=== PATIENT | male | born 1945 | race Caucasian/White ===

== ENCOUNTER → 2016-11-27 | Outpatient (CLI) | payer MEDICARE, OTHER ==
[2016-02-14 14:35] VITALS: BP 103/76
[~2016-11-27] MED LIST: AMIT25TA PO; ASPI81TA44 PO; ATORVASTATIN CA80 MG PO; CLOP75TA PO; CRESTOR20 MG PO; DOXY100T PO; FAMO-63 PO; FISH1CAP PO; GABA300S PO; LOSA1TAB16 PO; METO1TAB7 PO; NIAC500T PO; OMEG500C PO; PANT40TA5 PO; PROAIR HFA8.5 GM INH; REGADENOSON 0.4 MG/5 ML DISP.SYRIN. IV ONE; [UNRECOGNIZED DRUG - CODE] PO
--- NOTE | 2016-11-27 15:27 | RAD ---
APPROVED REPORT Test Type: Pharmacological Stress Nurse/Tech: Shannon Garnica R.N. Test Indications: pre op Cardiac History: [place] 2011, 3 stents, asthma, htn Medications: see ehr Medical History: see ehr Resting ECG: sr 1st degree HB Resting Heart Rate: 59 bpm Resting Blood Pressure: 149/85mmHg Pretest Chest Pain: No chest pain Nurse/Tech Notes lungs cta, heart tones regular, good radial pulse Consent: The procedure was explained to the patient in lay terms. Informed consent was witnessed. Maciej eout was entered into [employer]. History and Stress Test performed by Shannon Garnica R.N. Pharm. Details Pharmacologic stress testing was performed using 0.4mg per 5ml of regadenoson given intravenously ove r 7-10 seconds. Stress Symptoms No chest pain or symptoms. POST EXERCISE Reason for Termination: Infusion complete Target HR: No Max HR: 93 bpm Max Blood Pressure: 142/80mmHg Chest Pain: No. Arrhythmia: Yes. occ PVC noted ST Change: No. INTERPRETATION Stress EKG Conclusion: Baseline EKG showed sinus rhythm. No ischemic changes at peak stress. No arr hythmias. Imaging Protocol IMAGE PROTOCOL: Rest Tc-99m/stress Tc-99m 1 day Rest: Stress: Viability: Radiopharm.Tc99m AjofdueeoLa27o Sestamibi Dose11.2mCi 33.3mCi Duration 15min. 12min. Img Date 11/27/2016 11/27/2016 Inj-Img Ubca89wka. 60min. Rest Admin Site:IV - Left AntecubitalAdministrator:Matt Hadley RT (R)(N) Stress Admin Site: IV - Left AntecubitalAdministrator: Sulma Salazar RT (R)(N) STRESS DATA End Diast. Vol.109.0mlAv. Heart Rate70.0bpm End Syst. Vol.42.0mlCO Index BSA0.0L/min Myocardial Cahj279.0gEject. Bsxfkhmc90.0% Stress Rates Pk. Fill Rate2.49EDV/secLVtime Pk. Fill 111.21msec Pk. Empty Rate3.56ESV/secLVtime Pk. Qjddl414.95msec 1/3 Pk. Fill1.60EDV/sec Stress Scores Regional WT0.00Summed WT2.00 Regional WM0.00Summed WM5.00 Study quality was good. Left Ventricular size was Normal at Rest and Stress. Lung uptake was Normal. Left Ventricular ejection fraction is 61%. LV Perfusion Scintigraphic images showed small fixed defect involving the base to mid inferior wall consistent wit h previous myocardial infarction without any significant reversibility. Wall Motion Basal inferior wall hypokinesis LV Perf. Quant 17 Seg. SSS3.00 17 Seg. SRS6.00 17 Seg. SDS0.00 Stress Defect Extent (% LAD)0.00Rest Defect Extent (% LAD)0.00Rev. Defect Extent (% LAD)0.00 Stress Defect Extent (% LCX) 0.00Rest Defect Extent (% LCX)0.00Rev. Defect Extent (% LCX)0.00 Stress Defect Extent (% RCA)17.80Rest Defect Extent (% RCA)28.90Rev. Defect Extent (% RCA)0.00 Stress Defect Extent (% WADE)4.80Rest Defect Extent (% WADE)7.60Rev. Defect Extent (% WADE)0.00 Conclusion 1. Regadenoson cardioisotope stress test showed small base to mid inferior wall infarction without an y ischemia. 2. Basal inferior wall hypokinesis with ejection fraction calculated at 61%. 3. Low risk for cardiac events.
== END | disposition home or self-care (01) ==
LOC: NM 09:26
PROVIDERS: ATTEND Internal Medicine Cardiovascular Disease
DX: Z01.818 Encounter for other preprocedural examination (principal)
CPT/HCPCS: 78452; 93017; 96374; 96375; 96376; A9500; J2785

== ENCOUNTER → 2017-11-22 | Outpatient (CLI) | payer MEDICARE, OTHER | END | disposition home or self-care (01) | LOC: ECHO 09:34 | DX: I25.10 Atherosclerotic heart disease of native coronary artery without angina pectoris (principal); I10 Essential (primary) hypertension; E78.5 Hyperlipidemia, unspecified; E78.00 Pure hypercholesterolemia, unspecified; J44.1 Chronic obstructive pulmonary disease with (acute) exacerbation; K21.9 Gastro-esophageal reflux disease without esophagitis | CPT/HCPCS: 93306 ==

== ENCOUNTER → 2018-12-09 | Outpatient (CLI) | payer MEDICARE, OTHER ==
[2016-02-14 14:35] VITALS: BP 103/76
[~2018-12-09] MED LIST changes: +ALBU2.5V8 INH; -ASPI81TA44 PO; +ASPI81TA59 PO; -LOSA1TAB16 PO; +LOSA1TAB19 PO; -PANT40TA5 PO; +PANT40TA77 PO; -PROAIR HFA8.5 GM INH
--- NOTE | 2018-12-09 11:16 | CARD ---
MR#: [id number] Date of Study: 12/09/2018 Ordering Physician: FLAKITO MÁRQUEZ, Referring Physician: FLAKITO MÁRQUEZ, Tech: Wendi Kennedy APPROVED REPORT EXAM: Two-dimensional and M-mode echocardiogram with Doppler and color Doppler. Other Information Quality : GoodHR: 58bpm INDICATION CAD RISK FACTORS Hypertension Hyperlipidemia Two Myocardial Infarctions 2D DIMENSIONS RVDd3.8 (2.9-3.5cm)Left Atrium(2D)3.5 (1.6-4.0cm) IVSd1.2 (0.7-1.1cm)Aortic Root(2D)3.3 (2.0-3.7cm) LVDd4.9 (3.9-5.9cm)LVOT Diameter2.1 (1.8-2.4cm) PWd1.0 (0.7-1.1cm)LVDs3.3 (2.5-4.0cm) FS (%) 31.5 %SV65.3 ml LVEF(%)59.2 (>50%) Aortic Valve AoV Peak Moi.126.8cm/sAoV VTI23.4cm AO Peak GR.6.4mmHgLVOT Peak Moi.77.8cm/s LVOT VTI 18.35cmAO Mean GR.3mmHg ANDREW (VMAX)1.99xv5CGV (VTI)2.82cm2 Mitral Valve MV E Qynjqnuc33.1cm/sMV E Peak Gr.122mmHg MV DECEL XHEY483saTP A Rgjxnyiw26.2cm/s MV KLV45cuQ/A Ratio0.7 MVA (PHT)2.76cm2 TDI E/Lateral E'4.6E/Medial E'8.7 Pulmonary Valve PV Peak Igxfvvob169.8cm/sPV Peak Grad.6mmHg Tricuspid Valve TR P. Yzexsbti417fk/sRAP UFAFBZAW3fgMj TR Peak Gr.93ccCvQWRY20fuBq Pulmonary Vein S1 Rzbnzdak47.1cm/sD2 Rxggzdbf38.0cm/s PVa qeiypnmd692eijo LEFT VENTRICLE The left ventricle is normal size. There is borderline to mild concentric left ventricular hypertroph y. The left ventricular systolic function is normal. The Ejection Fraction is 50-55%. There is normal LV segmental wall motion. Transmitral Doppler flow pattern is Grade I-abnormal relaxation pattern. RIGHT VENTRICLE The right ventricle is normal size. There is normal right ventricular wall thickness. The right ventr icular systolic function is normal. ATRIA The left atrium size is normal. The right atrium size is normal. The interatrial septum is intact wit h no evidence for an atrial septal defect or patent foramen ovale as noted on 2-D or Doppler imaging. AORTIC VALVE The aortic valve is normal in structure and function. Doppler and Color Flow revealed trace aortic re gurgitation. There is no significant aortic valvular stenosis. MITRAL VALVE The mitral valve is normal in structure and function. There is no evidence of mitral valve prolapse. There is no mitral valve stenosis. Doppler and Color-flow revealed trace mitral regurgitation. TRICUSPID VALVE The tricuspid valve is normal in structure and function. Doppler and Color Flow revealed trace tricus pid regurgitation with an estimated PAP of 23 mmHg. There is no tricuspid valve prolapse or vegetatio n. There is no tricuspid valve stenosis. PULMONIC VALVE The pulmonic valve is not well visualized. Doppler and Color Flow revealed trace pulmonic valvular re gurgitation. GREAT VESSELS The aortic root is normal in size. The IVC is normal in size and collapses >50% with inspiration. PERICARDIAL EFFUSION There is no evidence of significant pericardial effusion. Critical Notification Critical Value: No <Conclusion> The left ventricular systolic function is normal. The Ejection Fraction is 50-55%. There is normal LV segmental wall motion. Transmitral Doppler flow pattern is Grade I-abnormal relaxation pattern. Trace aortic regurgitation. Trace mitral regurgitation. Trace tricuspid regurgitation with an estimated PAP of 23 mmHg. There is no evidence of significant pericardial effusion. Signed by : Flakito Márquez, Electronically Approved : 12/09/2018 11:15:57
--- NOTE | 2018-12-09 13:18 | RAD ---
MR#: [id number] Date of Study: 12/09/2018 Ordering Physician: FLAKITO FELIZ, Referring Physician: ELDON FRY Tech: JHONY Saldana ARRT (R) (N) APPROVED REPORT Test Type: Pharmacological Stress Nurse/Tech: Avila Pérez RN Test Indications: CAD Cardiac History: MD, PTCA Medications: See Electronic Medical Record Medical History: See Electronic Medical Record Resting ECG: SR Resting Heart Rate: 58 bpm Resting Blood Pressure: 121/76mmHg Pretest Chest Pain: None Nurse/Tech Notes Lungs CTA, S1S2 Consent: The procedure was explained to the patient in lay terms. Informed consent was witnessed. Maciej eout was entered into [email or web address]. History and Stress Test performed by Avila Pérez RN Pharm. Details Pharmacologic stress testing was performed using 0.4mg per 5ml of regadenoson given intravenously ove r 7-10 seconds. Stress Symptoms No chest pain or symptoms. POST EXERCISE Reason for Termination: Infusion complete Max HR: 84 bpm Max Blood Pressure: 121/76mmHg Blood Pressure response to exercise: Normal blood pressure response during stress. Heart Rate response to exercise: normal response Chest Pain: No. Arrhythmia: No. ST Change: No. INTERPRETATION Stress EKG Conclusion: Baseline EKG showed sinus rhythm with old inferior infarct. No diagnostic evid ence of ischemia at peak stress. No arrhythmias. Imaging Protocol IMAGE PROTOCOL: Rest Tc-99m/stress Tc-99m 1 day Rest: Stress: Viability: Radiopharm.Tc99m PqnsensunOg37b Sestamibi Qitb72dAn 31.3mCi Img Date 12/09/2018 12/09/2018 Inj-Img Wgyb07tke. 60min. Rest Admin Site:IV - Left AntecubitalAdministrator:JHONY Saldana ARRT (R)(N) Stress Admin Site: IV - Left AntecubitalAdministrator: [facility] STRESS DATA End Diast. Vol.109.0mlLVEDV index BSA61.0ml End Syst. Vol.29.0mlLVESV index BSA16.0ml Myocardial Qacl184.0gEject. Jhcbuhsy03.0% Stress Scores Regional WT0.00Summed WT10.00 Regional WM0.00Summed WM0.00 LV Perfusion Scintigraphic images showed small to moderate fixed defect involving the base to mid inferior wall ex tending into the inferolateral wall consistent with previous myocardial infarction without any revers ibility. Wall Motion Basal inferior wall hypokinesis with ejection fraction calculated at 74%. LV Perf. Quant 17 Seg. SSS5.00 17 Seg. SRS6.00 17 Seg. SDS0.00 Stress Defect Extent (% LAD)0.00Rest Defect Extent (% LAD)0.00Rev. Defect Extent (% LAD)0.00 Stress Defect Extent (% LCX) 2.50Rest Defect Extent (% LCX)1.30Rev. Defect Extent (% LCX)0.00 Stress Defect Extent (% RCA)37.80Rest Defect Extent (% RCA)44.40Rev. Defect Extent (% RCA)0.00 Stress Defect Extent (% WADE)11.10Rest Defect Extent (% WADE)11.10Rev. Defect Extent (% WADE)0.00 Conclusion 1. Regadenoson cardioisotope stress test showed thnbz-dq-pdaxouiv infarct involving the base to mid i nferior wall without any ischemia. 2. Basal inferior wall hypokinesis with ejection fraction calculated at 74%. 3. Low risk for cardiac events. Signed by : Flakito Feliz, Electronically Approved : 12/09/2018 13:17:57
== END | disposition home or self-care (01) ==
LOC: ECHO 07:49
PROVIDERS: ATTEND Internal Medicine Cardiovascular Disease
DX: I51.7 Cardiomegaly (principal); I21.19 ST elevation (STEMI) myocardial infarction involving other coronary artery of inferior wall; I25.10 Atherosclerotic heart disease of native coronary artery without angina pectoris; I25.2 Old myocardial infarction; Z98.61 Coronary angioplasty status
CPT/HCPCS: 78452; 93017; 93306; A9500; J2785

== ENCOUNTER → 2019-11-12 | Outpatient (CLI) | payer MEDICARE, OTHER ==
[2016-02-14 14:35] VITALS: BP 103/76
[~2019-11-12] MED LIST changes: -REGADENOSON 0.4 MG/5 ML DISP.SYRIN. IV ONE
--- NOTE | 2019-11-12 11:57 | CARD ---
MR#: [id number] Date of Study: 11/12/2019 Ordering Physician: FLAKITO FELIZ, Referring Physician: FLAKITO FELIZ, Tech: Wendi Kennedy APPROVED REPORT EXAM: Two-dimensional and M-mode echocardiogram with Doppler and color Doppler. Other Information Quality : AverageHR: 60bpm Technically limited study due to COPD INDICATION Cardiac Disease: CAD RISK FACTORS Hypertension Hyperlipidemia 2D DIMENSIONS Left Atrium(2D)3.3 (1.6-4.0cm)IVSd1.2 (0.7-1.1cm) Aortic Root(2D)3.2 (2.0-3.7cm)LVDd4.9 (3.9-5.9cm) LVOT Diameter2.1 (1.8-2.4cm)PWd0.9 (0.7-1.1cm) LVDs3.5 (2.5-4.0cm)FS (%) 30.2 % SV66.1 mlLVEF(%)57.3 (>50%) Aortic Valve AoV Peak Moi.126.0cm/sAoV VTI26.3cm AO Peak GR.6.3mmHgLVOT Peak Moi.82.8cm/s LVOT VTI 17.45cmAO Mean GR.3mmHg ANDREW (VMAX)1.07ah9OPT (VTI)2.26cm2 Mitral Valve MV E Fyarmihl41.1cm/sMV DECEL ZNBT456dq MV A Frpsugpb19.7cm/sMV E Mean Gr.1mmHg MV PFE37bpR/A Ratio0.7 MVA (PHT)3.36cm2 TDI E/Lateral E'4.3E/Medial E'9.2 Pulmonary Valve PV Peak Ndgpjzru62.2cm/sPV Peak Grad.2mmHg Tricuspid Valve TR P. Uysoxsok966om/sRAP RQABQWXJ5hsYx TR Peak Gr.54siJmJDMU44qnCt Pulmonary Vein S1 Nwhonkoz85.2cm/sD2 Eqriepbd23.2cm/s PVa iqcgjuec313cdyr LEFT VENTRICLE The left ventricle is normal size. There is normal left ventricular wall thickness. The left ventricu lar systolic function is normal and the ejection fraction is within normal range. The Ejection Fracti on is 50-55%. There is normal LV segmental wall motion. Transmitral Doppler flow pattern is Grade I-a bnormal relaxation pattern. RIGHT VENTRICLE The right ventricle is normal size. There is normal right ventricular wall thickness. The right ventr icular systolic function is normal. ATRIA The left atrium size is normal. The right atrium size is normal. The interatrial septum is intact wit h no evidence for an atrial septal defect or patent foramen ovale as noted on 2-D or Doppler imaging. AORTIC VALVE The aortic valve is thickened but opens well. Doppler and Color Flow revealed trace aortic regurgitat ion. There is no significant aortic valvular stenosis. Calculated aortic valve area is 2.03 cm2 with maximum pressure gradient of 8 mmHg and mean pressure gradient of 4 mmHg. MITRAL VALVE The mitral valve is normal in structure and function. There is no evidence of mitral valve prolapse. There is no mitral valve stenosis. Doppler and Color Flow revealed no mitral valve regurgitation note d. TRICUSPID VALVE The tricuspid valve is normal in structure and function. Doppler and Color Flow revealed trace tricus pid regurgitation with an estimated PAP of 19 mmHg. There is no tricuspid valve stenosis. PULMONIC VALVE The pulmonic valve is not well visualized. Doppler and Color Flow revealed no pulmonic valvular regur gitation. There is no pulmonic valvular stenosis. GREAT VESSELS The aortic root is normal in size. The IVC is normal in size and collapses >50% with inspiration. PERICARDIAL EFFUSION There is no evidence of significant pericardial effusion. Critical Notification Critical Value: No <Conclusion> The left ventricular systolic function is normal and the ejection fraction is within normal range. Th e Ejection Fraction is 50-55%. There is normal LV segmental wall motion. Signed by : Shukri Miles, Electronically Approved : 11/12/2019 11:57:11
== END | disposition home or self-care (01) ==
LOC: ECHO 07:54
PROVIDERS: ATTEND Internal Medicine Cardiovascular Disease
DX: I25.10 Atherosclerotic heart disease of native coronary artery without angina pectoris (principal)
CPT/HCPCS: 93306

== ENCOUNTER → 2019-12-01 | Outpatient (CLI) | payer MEDICARE, OTHER ==
[2016-02-14 14:35] VITALS: BP 103/76
--- NOTE | 2019-12-01 17:21 | RAD ---
MR#: [id number] Date of Study: 12/01/2019 Ordering Physician: FLAKITO FELIZ, Referring Physician: FLAKITO FELIZ, Tech: Pj Roberts RDMS, RVT APPROVED REPORT Patient Location: OUT-PATIENT Indications Rest Pain:Bilaterally more so on lft than rt VELOCITY AND DOPPLER WAVEFORM ANALYSIS RIGHT cm/secWaveformSeverity LEFT cm/secWaveform Severity pCFA 112.0TriphasicpCFA 126.0Triphasic dCFA dCFA Prof Fem Art. 84.0TriphasicProf Fem Art. 44.0Triphasic Fem Art Prox. 92.0TriphasicFem Art Prox. 109.0Triphasic Fem Art Mid. 78.0TriphasicFem Art Mid. 69.0Triphasic Fem Art Dist. 79.0TriphasicFem Art Dist. 72.0Triphasic Pop Art(Fossa) 65.0TriphasicPop Art(AK) 71.0Triphasic AUTOMATIC PAD MAKING MACHINE OPERATOR Prox. 57.0TriphasicPTA Prox. 46.0Triphasic AUTOMATIC PAD MAKING MACHINE OPERATOR Dist. 55.0TriphasicPTA Dist. 50.0Triphasic Per Art Prox. 31.0TriphasicPer Art Prox. 39.0Triphasic Per Art Dist.33.0TriphasicPer Art Dist.39.0Biphasic JUST[place] Prox. 43.0TriphasicATA Prox. 40.0Triphasic Findings Grayscale images of the bilateral lower extremity arterial vessels reveals mild to moderate diffuse a therosclerosis. On the right side there are triphasic waveforms with three-vessel runoff. Similarly on the left side there are triphasic waveforms with three-vessel runoff. No significant focal stenosis is identified . Critical Notification Critical Value: No <Conclusion> 1. No significant lower extremity arterial disease bilaterally. 2. There is three-vessel runoff below the knee bilaterally, monophasic waveforms in the left peronea l artery suggestive of diffuse calcification but no focal high-grade stenosis noted Signed by : Shukri Miles, Electronically Approved : 12/01/2019 17:20:57
== END | disposition home or self-care (01) ==
LOC: US 15:08
PROVIDERS: ATTEND Internal Medicine Cardiovascular Disease
DX: I70.203 Unspecified atherosclerosis of native arteries of extremities, bilateral legs (principal); M79.605 Pain in left leg; M79.604 Pain in right leg
CPT/HCPCS: 93925

== ENCOUNTER → 2020-11-23 | Outpatient (CLI) | payer MEDICARE, OTHER ==
[2016-02-14 14:35] VITALS: BP 103/76
[~2020-11-23] MED LIST changes: +REGADENOSON 0.4 MG/5 ML DISP.SYRIN. IV ONE
--- NOTE | 2020-11-23 17:18 | CARD ---
MR#: [id number] Date of Study: 11/23/2020 Ordering Physician: FLAKITO FELIZ, Referring Physician: FLAKITO FELIZ Tech: Zoë Enrique [facility] APPROVED REPORT EXAM: Two-dimensional and M-mode echocardiogram with Doppler and color Doppler. Other Information Quality : AverageHR: 57bpm Rhythm : NSR INDICATION Cardiac Disease: RISK FACTORS Hypertension Hyperlipidemia 2D DIMENSIONS RVDd3.1 (2.9-3.5cm)Left Atrium(2D)3.3 (1.6-4.0cm) IVSd1.1 (0.7-1.1cm)Aortic Root(2D)3.2 (2.0-3.7cm) LVDd4.9 (3.9-5.9cm)LVOT Diameter2.3 (1.8-2.4cm) PWd1.2 (0.7-1.1cm)LVDs4.1 (2.5-4.0cm) FS (%) 16.7 %SV39.5 ml Aortic Valve AoV Peak Moi.135.9cm/sAoV VTI33.2cm AO Peak GR.7.4mmHgLVOT Peak Moi.85.1cm/s AO Mean GR.3mmHgAVA (VMAX)2.63cm2 Mitral Valve MV E Mhdwcfsy93.5cm/sMV DECEL XYHY738le MV A Nzqlggxm92.6cm/sE/A Ratio0.9 Tricuspid Valve TR P. Hboasmpl940yp/sTR Peak Gr.17mmHg Pulmonary Vein S1 Bcucxzel11.3cm/sD2 Txognwag57.1cm/s PVa hvtpbevl706xsuf LEFT VENTRICLE The left ventricle is normal size. There is mild concentric left ventricular hypertrophy. The left ve ntricular systolic function is low normal. Estimated ejection fraction is 50%. There is normal LV se gmental wall motion. The left ventricular diastolic function and filling is normal for age. RIGHT VENTRICLE The right ventricle is normal size. There is normal right ventricular wall thickness. The right ventr icular systolic function is normal. ATRIA The left atrium size is normal. The right atrium size is normal. The interatrial septum is intact wit h no evidence for an atrial septal defect or patent foramen ovale as noted on 2-D or Doppler imaging. AORTIC VALVE The aortic valve is normal in structure and function. Doppler and Color Flow revealed mild aortic reg urgitation. There is no significant aortic valvular stenosis. MITRAL VALVE The mitral valve is normal in structure and function. There is no evidence of mitral valve prolapse. There is no mitral valve stenosis. Doppler and Color-flow revealed mild mitral regurgitation. TRICUSPID VALVE The tricuspid valve is normal in structure and function. Doppler and Color Flow revealed mild tricusp id regurgitation. Estimated PAP 20 mmHg. There is no tricuspid valve stenosis. GREAT VESSELS The aortic root is normal in size. PERICARDIAL EFFUSION There is no evidence of significant pericardial effusion. Critical Notification Critical Value: No <Conclusion> The left ventricle is normal size. The left ventricular systolic function is low normal. Estimated ejection fraction is 50%. There is mild concentric left ventricular hypertrophy. Doppler and Color Flow revealed mild aortic regurgitation. There is no significant aortic valvular stenosis. Doppler and Color-flow revealed mild mitral regurgitation. Doppler and Color Flow revealed mild tricuspid regurgitation. Estimated PAP 20 mmHg. Signed by : Heladio Romo MD Electronically Approved : 11/23/2020 17:18:09
--- NOTE | 2020-11-23 17:57 | RAD ---
MR#: [id number] Date of Study: 11/23/2020 Ordering Physician: FLAKITO FELIZ, Referring Physician: ELDON FRY Tech: JHONY Saldana, ARRT (R) (N)[facility] APPROVED REPORT Test Type: Pharmacological Stress Nurse/Tech: Paula Samayoa R.N. Test Indications: CAD Cardiac History: [place]-stents 2010,htn Medications: See Electronic Medical Record Medical History: See Electronic Medical Record Resting Heart Rate: 69 bpm Resting Blood Pressure: 123/67mmHg Pretest Chest Pain: No chest pain Nurse/Tech Notes S1S2. lungs CTA Consent: The procedure was explained to the patient in lay terms. Informed consent was witnessed. Maciej eout was entered into [employer]. History and Stress Test performed by MA[facility] Pharm. Details Pharmacologic stress testing was performed using 0.4mg per 5ml of regadenoson given intravenously ove r 7-10 seconds. Stress Symptoms SOA POST EXERCISE Reason for Termination: Infusion complete Max HR: 105 bpm Max Blood Pressure: 113/52mmHg Blood Pressure response to exercise: Normal blood pressure response during stress. Heart Rate response to exercise: wnl Chest Pain: No. Arrhythmia: No. INTERPRETATION Stress EKG Conclusion: The resting EKG shows a sinus rhythm with mild nonspecific T wave changes. The stress EKG shows no significant changes from baseline. No EKG evidence of stress-induced ischemia. Imaging Protocol IMAGE PROTOCOL: Rest Tc-99m/stress Tc-99m 1 day Rest: Stress: Viability: Radiopharm.Tc99m QqolwpyskPf85h Sestamibi Udwb37tWt 31mCi Duration 15min. 10min. Img Date 11/23/2020 11/23/2020 Inj-Img Gekn58iga. 60min. Rest Admin Site:IV - Left AntecubitalAdministrator:[facility] Stress Admin Site: IV - Left AntecubitalAdministrator: JHONY Saldana, ARRT (R)(N) STRESS DATA End Diast. Vol.95.0mlAv. Heart Rate68.0bpm End Syst. Vol.30.0mlCO Index BSA0.0L/min Myocardial Qfvg342.0gEject. Pizdnjvu26.0% Stress Rates Pk. Fill Rate2.18EDV/secLVtime Pk. Fill 122.21msec Pk. Empty Rate3.78ESV/secLVtime Pk. Aukrs707.09msec 1/3 Pk. Fill1.48EDV/sec Stress Scores Regional WT1.00Summed WT8.00 Regional WM0.00Summed WM2.00 LV Perfusion The stress scans show an inferior wall defect. The rest scans show a slightly larger inferior wall defect. Nuclear imaging shows a fixed inferior wall defect most consistent with a prior infarct. There is no reversible ischemia. Wall Motion Left ventricular ejection fraction is 65% with slight inferior hypokinesis. LV Perf. Quant 17 Seg. SSS9.00 17 Seg. SRS16.00 17 Seg. SDS1.00 Stress Defect Extent (% LAD)0.00Rest Defect Extent (% LAD)7.50Rev. Defect Extent (% LAD)0.00 Stress Defect Extent (% LCX) 20.00Rest Defect Extent (% LCX)26.30Rev. Defect Extent (% LCX)0.00 Stress Defect Extent (% RCA)28.90Rest Defect Extent (% RCA)91.10Rev. Defect Extent (% RCA)0.00 Stress Defect Extent (% WADE)13.70Rest Defect Extent (% WADE)33.30Rev. Defect Extent (% WADE)0.00 Conclusion 1. No EKG evidence of stress-induced ischemia. 2. Fixed inferior wall defect most consistent with a prior infarct. 3. No reversible ischemia. 4. LV ejection fraction of 65% with slight inferior wall hypokinesis. 5. Moderately low risk Lexiscan nuclear stress test. Signed by : Heladio Romo MD Electronically Approved : 11/23/2020 17:57:03
== END ==
LOC: ECHO 08:49
PROVIDERS: ATTEND Internal Medicine Cardiovascular Disease
DX: I08.3 Combined rheumatic disorders of mitral, aortic and tricuspid valves (principal); I25.10 Atherosclerotic heart disease of native coronary artery without angina pectoris
CPT/HCPCS: 78452; 93017; 93306; A9500; J2785

== ENCOUNTER 2021-08-13 12:49 | Inpatient (IN) | payer MEDICARE ==
[~2021-08-13] VITALS: Ht 162.6 cm; Wt 73.1 kg
[~2021-08-13 12:49] MED LIST changes: -REGADENOSON 0.4 MG/5 ML DISP.SYRIN. IV ONE
[2021-08-13] MEDS ORDERED: IV RINGERS,LACTATED 1000ML 1,000 ML IV SCH (13:15)
[2021-08-13] MEDS ORDERED: fentaNYL PF VIAL 100 MCG/2 ML VIAL IV PRN (13:15)
[2021-08-13 13:19] LABS: BASO % 1 % (0-3); EOS # 0.1 x10^3/uL (0.0-0.7); EOS % 2 % (0-3); HEMATOCRIT 42.4 % (39.0-53.0); HEMOGLOBIN 14.6 g/dL (13.0-17.5); LYMPH # 1.3 x10^3/uL (1.0-4.8); LYMPH % 25 % (24-48); MEAN CORPUSCULAR HEMOGLOBIN 32 pg (25-35); MEAN CORPUSCULAR HGB CONC 35 g/dL (31-37); MEAN CORPUSCULAR VOLUME 92 fL (79-100); MONO # 0.4 x10^3/uL (0.0-1.1); MONO % 8 % (0-9); NEUT # 3.3 x10^3/uL (1.8-7.7); NEUT % 64 % (31-73); PLATELET COUNT 224 x10^3/uL (140-400); RED BLOOD COUNT 4.59 x10^6/uL (4.30-5.70); RED CELL DISTRIBUTION WIDTH 13.3 % (11.5-14.5); WHITE BLOOD COUNT 5.2 x10^3/uL (4.0-11.0)
--- NOTE | 2021-08-13 13:27 | ED.ADGEN ---
Past Medical History Past Medical History: CAD, GERD, High Cholesterol, Hypertension, [place] Additional Past Medical Histor: chronic back pain, neuropathy Past Surgical History: Other Additional Past Surgical Histo: cardiac stents x 4, rotator cuff, lower back Smoking Status: Never Smoker Alcohol Use: None Drug Use: None General Adult EDM: Chief Complaint: CHEST PAIN HPI: HPI: Patient is a 76 year old male coming in via EMS from home for chest pain and back pain. 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 Patient denies any heavy lifting or trauma patient event. The pain is not worse with palpation or movement. Says he was cutting down a tree when he started having pounding chest pain at 1130. Patient states he went to lay down and the chest pain eased up some, was given 324 mg of aspirin by EMS. Patient states the pain in his chest is since resolved but he still having the back pain. Patient has a history of previous MIs in 1999 and 2010 each with 1 stent being placed in RCA. Had angiogram of her chest 2004 and had another stent placement in the RCA. Patient has a former history of tobacco use, hypertension, and dyslipidemia. Denies diabetes. Review of Systems: Review of Systems: All other systems within normal limits except for as noted in the HPI Current Medications: Current Medications Medications (Trade) Dose Ordered Sig/Magda Start Time Stop Time Status Last Admin Dose Admin Acetaminophen (Tylenol) 650 mg PRN Q4HRS PRN 08/13/21 15:00 08/14/21 14:59 Fentanyl Citrate (Fentanyl 2ml Vial) 50 mcg PRN Q1HR PRN 08/13/21 15:00 08/14/21 14:59 Nitroglycerin (Nitrostat) 0.4 mg PRN Q5MIN PRN 08/13/21 15:00 08/14/21 14:59 Ondansetron HCl (Zofran) 4 mg PRN Q8HRS PRN 08/13/21 15:00 08/14/21 14:59 Ringer's Solution 1,000 ml @ 1,000 mls/hr Q1H 08/13/21 13:15 08/13/21 14:14 DC 08/13/21 13:27 1,000 MLS/HR Allergies: Allergies: Allergies Coded Allergies Type Severity Reaction Last Updated Verified morphine Adverse Reaction Severe vOMITING 08/13/21 Yes Physical Exam: PE: Constitutional: Well developed, well nourished, no acute distress, non-toxic appearance. [] HENT: Normocephalic, atraumatic, bilateral external ears normal, nose normal. [] Eyes: PERRLA, conjunctiva normal, no discharge. [] Neck: No rigidity, supple, no stridor. [] Cardiovascular: Regular rate and rhythm, brisk cap refill [] Lungs & Thorax: Non labored symmetric respirations, no tachypnea or respiratory distress [] Abdomen: Soft, nondistended, no abdominal tenderness palpation. Skin: Warm, dry, no erythema, no rash. [] Back: Unremarkable, no spinal deformity, no point tenderness palpation Extremities: No deformities, range of motion grossly intact, no lower extremity edema [] Neurologic: Alert and oriented X 3, no focal deficits noted. [] Psychologic: Affect normal, judgement normal, mood normal. [] Current Patient Data: Labs: Laboratory Tests Test 08/13/21 13:04 08/13/21 13:37 White Blood Count 5.2 x10^3/uL (4.0-11.0) Red Blood Count 4.59 x10^6/uL (4.30-5.70) Hemoglobin 14.6 g/dL (13.0-17.5) Hematocrit 42.4 % (39.0-53.0) Mean Corpuscular Volume 92 fL (79-100) Mean Corpuscular Hemoglobin 32 pg (25-35) Mean Corpuscular Hemoglobin Concent 35 g/dL (31-37) Red Cell Distribution Width 13.3 % (11.5-14.5) Platelet Count 224 x10^3/uL (140-400) Neutrophils (%) (Auto) 64 % (31-73) Lymphocytes (%) (Auto) 25 % (24-48) Monocytes (%) (Auto) 8 % (0-9) Eosinophils (%) (Auto) 2 % (0-3) Basophils (%) (Auto) 1 % (0-3) Neutrophils # (Auto) 3.3 x10^3/uL (1.8-7.7) Lymphocytes # (Auto) 1.3 x10^3/uL (1.0-4.8) Monocytes # (Auto) 0.4 x10^3/uL (0.0-1.1) Eosinophils # (Auto) 0.1 x10^3/uL (0.0-0.7) Basophils # (Auto) 0.0 x10^3/uL (0.0-0.2) Prothrombin Time 13.7 SEC (11.7-14.0) Prothrombin Time INR 1.1 (0.8-1.1) D-Dimer (Megan) 0.27 ug/mlFEU (0.00-0.50) Sodium Level 139 mmol/L (136-145) Potassium Level 3.9 mmol/L (3.5-5.1) Chloride Level 105 mmol/L (98-107) Carbon Dioxide Level 23 mmol/L (21-32) Anion Gap 11 (6-14) Blood Urea Nitrogen 23 mg/dL (8-26) Creatinine 1.2 mg/dL (0.7-1.3) Estimated GFR (Cockcroft-Gault) 58.9 BUN/Creatinine Ratio 19 (6-20) Glucose Level 110 mg/dL (70-99) H Calcium Level 9.2 mg/dL (8.5-10.1) Magnesium Level 2.1 mg/dL (1.8-2.4) Total Bilirubin 0.5 mg/dL (0.2-1.0) Aspartate Amino Transferase (AST) 44 U/L (15-37) H Alanine Aminotransferase (ALT) 59 U/L (16-63) Alkaline Phosphatase 64 U/L (46-116) Troponin I High Sensitivity 34 ng/L (4-75) JM-Wre-J-Type Natriuretic Peptide 191 pg/mL (0-449) Total Protein 6.9 g/dL (6.4-8.2) Albumin 4.1 g/dL (3.4-5.0) Albumin/Globulin Ratio 1.5 (1.0-1.7) Lipase 98 U/L (73-393) Urine Collection Type Unknown Urine Color (Auto) Light yellow Urine Turbidity Clear Urine pH (Auto) 6.5 (<5.0-8.0) Urine Specific [place] 1.011 (1.000-1.030) Urine Protein (Auto) Negative mg/dL (Negative) Urine Glucose (Auto)(UA) Negative mg/dL (Negative) Urine Ketones (Auto) Negative mg/dL (Negative) Urine Blood (Auto) Negative (Negative) Urine Nitrite Negative (Negative) Urine Bilirubin (Auto) Negative (Negative) Urine Urobilinogen (Auto) Normal mg/dL (Normal) Urine Leukocyte Esterase (Auto) Negative (Negative) Urine RBC 0 /HPF (0-2) Urine WBC 0 /HPF (0-4) Urine Bacteria 0 /HPF (0-FEW) Urine Hyaline Casts Few /HPF Urine Mucus Slight /LPF Urine Opiates Screen Neg (NEG) Urine Methadone Screen Neg (NEG) Urine Barbiturates Neg (NEG) Urine Phencyclidine Screen Neg (NEG) Urine Amphetamine/Methamphetamine Neg (NEG) Urine Benzodiazepines Screen Neg (NEG) Urine Cocaine Screen Neg (NEG) Urine Cannabinoids Screen Neg (NEG) Urine Ethyl Alcohol Neg (NEG) Laboratory Tests 08/13/21 13:04 Laboratory Tests 08/13/21 13:04 Vital Signs: Vital Signs Date Time Temp Pulse Resp B/P (MAP) Pulse Ox O2 Delivery O2 Flow Rate FiO2 08/13/21 13:57 84 16 132/67 (88) 96 Room Air 08/13/21 12:55 97.5 97.5 EKG: EK: Sinus rhythm, heart rate 90 beats minute, left axis deviation. No STEMI. Occasional PVC 1322: Sinus rhythm, heart rate in any clinic, still occasional PVCs, no changes from previous EKG [] Heart Score: C/O Chest Pain: Yes HEART Score for Chest Pain: HEART Score for Chest Pain Response (Comments) Value History Highly Suspicious 2 ECG Nonspecific Repolarizatio 1 Age > 65 2 Risk Factors >3 Risk Factors or Hx CAD 2 Troponin < Normal Limit 0 Total 7 Risk Factors: Risk Factors: DM, Current or recent (<one month) smoker, HTN, HLP, family history of CAD, obesity. Risk Scores: Score 0 - 3: 2.5% MACE over next 6 weeks - Discharge Home Score 4 - 6: 20.3% MACE over next 6 weeks - Admit for Clinical Observation Score 7 - 10: 72.7% MACE over next 6 weeks - Early Invasive Strategies Radiology/Procedures: Radiology/Procedures: [facility] [address] [place], [place] [id number] IMAGING REPORT Signed PATIENT: MASON BELL ACCOUNT: [id number] : 1945 LOCATION: ER AGE: 76 SEX: M EXAM STATUS: PRE ER ORD. PHYSICIAN: JANIS LOUIE MD REASON: chest pain PROCEDURE: PORTABLE CHEST 1V AP chest. HISTORY: Chest pain AP view was taken of the chest. There is arthritis in both shoulders. Lungs are free of infiltrates. Heart is normal in size. There is no effusion. IMPRESSION: 1. No acute infiltrates. Electronically signed by: Nick Diaz MD (08/13/2021 1:45 PM) [id number] DICTATED and SIGNED BY: NICK DIAZ MD DATE: 08/13/21 1344 Course & Med Decision Making: Course & Med Decision Making Pertinent Labs and Imaging studies reviewed. (See chart for details) [] Dragon Disclaimer: Dragon Disclaimer: This electronic medical record was generated, in whole or in part, using a voice recognition dictation system. Departure Departure Impression: Primary Impression: Chest pain Disposition: ADMITTED INPATIENT Admitting Physician: GEREMIAS Condition: STABLE Referrals: ALANNA BASURTO JR, MD (PCP) JANIS LOUIE MD Aug 13, 2021 13:27
[2021-08-13 13:35] LABS: PROTHROMBIN TIME PATIENT 13.7 SEC (11.7-14.0)
[2021-08-13 13:37] LABS: CALCIUM 9.2 mg/dL (8.5-10.1); CREATININE 1.2 mg/dL (0.7-1.3); GFR 58.9; POTASSIUM 3.9 mmol/L (3.5-5.1)
[2021-08-13 13:44] LABS: ALBUMIN 4.1 g/dL (3.4-5.0); ALBUMIN/GLOBULIN RATIO 1.5 (1.0-1.7); MAGNESIUM 2.1 mg/dL (1.8-2.4); TOTAL BILIRUBIN 0.5 mg/dL (0.2-1.0); TOTAL PROTEIN 6.9 g/dL (6.4-8.2)
--- NOTE | 2021-08-13 13:47 | RAD ---
AP chest. HISTORY: Chest pain AP view was taken of the chest. There is arthritis in both shoulders. Lungs are free of infiltrates. Heart is normal in size. There is no effusion. IMPRESSION: 1. No acute infiltrates. Electronically signed by: Nick Diaz MD (08/13/2021 1:45 PM) [id number]
[2021-08-13 13:55] LABS: BARBITURATES NEG (NEG); BENZODIAZEPINES NEG (NEG); CANNABINOIDS NEG (NEG); COCAINE NEG (NEG); METHADONE NEG (NEG); OPIATES NEG (NEG); PHENCYCLIDINE NEG (NEG)
[2021-08-13 13:56] LABS: D-DIMER 0.27 ug/mlFEU (0.00-0.50)
[2021-08-13 13:57] LABS: AMPHETAMINE/METHAMPHETAMINE NEG (NEG)
[2021-08-13 14:09] LABS: BACTERIA,URINE 0 /HPF (0-FEW); HYALINE CASTS, URINE FEW /HPF; RBC,URINE 0 /HPF (0-2); WBC,URINE 0 /HPF (0-4)
[2021-08-13] MEDS ORDERED: ONDANSETRON PF 4 MG/2 ML VIAL. IVP PRN (15:00)
[2021-08-13] MEDS ORDERED: NITROGLYCERIN SUBLINGUAL 0.4 MG BOTTLE OF 25. SL PRN (15:00)
[2021-08-13] MEDS ORDERED: fentaNYL PF VIAL 100 MCG/2 ML VIAL IVP PRN (15:00)
[2021-08-13] MEDS ORDERED: ACETAMINOPHEN 325 MG TABLET. PO PRN (15:00)
[2021-08-13 15:52] VITALS: BP 140/83
[2021-08-13] MEDS ORDERED: GABA300C18 PO (16:08)
[2021-08-13] MEDS ORDERED: LOSA-73 PO (16:08)
--- NOTE | 2021-08-13 17:00 | NUR ---
DR FELIZ NOTIFIED OF [id number]. NO ORDER RECEIVED FOR ANTICOAGULATION. PATIENT IS CP FREE AT THIS TIME, PLUS PATIENT IS ON PLAVIX.
[2021-08-13 19:05] VITALS: BP 119/79
--- NOTE | 2021-08-13 19:36 | HP ---
DATE OF SERVICE: 08/13/2021 ADMIT DATE: 08/13/2021 CHIEF COMPLAINT: Chest pain. HISTORY OF PRESENT ILLNESS: The patient is a pleasant elderly male who presents with chest pain. He states he was cutting some wood today. He broke out in a cold sweat. He was short of breath. He had chest pain. He has 3 previous coronary stents to the right coronary artery. He states he had echocardiogram in June with Dr. Márquez and it was okay. I discussed the case with ER physician. We are going to admit the patient and consult Dr. Márquez. PAST MEDICAL HISTORY: Previous coronary artery disease with 3 prior stents to the right coronary artery, GERD, hyperlipidemia, hypertension, myocardial infarction, back surgery, neuropathy, rotator cuff surgery, lower back surgery. ALLERGIES: MORPHINE. FAMILY HISTORY: Coronary artery disease. SOCIAL HISTORY: He does not drink, smoke or take drugs. 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 He states he retired when he was 53. MEDICATIONS: Reviewed, please refer to the MRAD. REVIEW OF SYSTEMS: GENERAL: No history of weight change, weakness or fevers. SKIN: No bruising, hair changes or rashes. EYES: No blurred, double or loss of vision. NOSE AND THROAT: No history of nosebleeds, hoarseness or sore throat. HEART: He complains of chest pain. LUNGS: Denies cough, hemoptysis, wheezing or shortness of breath. GASTROINTESTINAL: Denies changes in appetite, nausea, vomiting, diarrhea or constipation. GENITOURINARY: No history of frequency, urgency, hesitancy or nocturia. NEUROLOGIC: Denies history of numbness, tingling, tremor or weakness. PSYCHIATRIC: No history of panic, anxiety or depression. ENDOCRINE: No history of heat or cold intolerance, polyuria or polydipsia. EXTREMITIES: Denies muscle weakness, joint pain, pain on walking or stiffness. PHYSICAL EXAMINATION: VITALS: Within normal limits and are stable. GENERAL: No apparent distress. Alert and oriented. HEENT: Normal cephalic atraumatic, external auditory canals are patent. EYES: Extraocular muscles are intact, pupils are equally round and reactive to light and accommodation. MUSCULOSKELETAL: Well developed, well nourished, good range of motion. ENDOCRINE: No thyromegaly was palpated. LYMPHATICS: No cervical chain or axillary nodes were noted. HEMATOPOIETIC: No bruising. NECK: Supple, no JVD, no thyromegaly was noted. LUNGS: Clear to auscultation in all lung walter without rhonchi or wheezing. HEART: RRR, S1, S2 present. Peripheral pulses intact, no obvious murmurs were noted. ABDOMEN: Soft, nontender. Positive bowel sounds no organomegaly, normal bowel sounds. EXTREMITIES: Without any cyanosis, clubbing, or edema. Pedal pulses intact, Homans sign is negative. NEUROLOGIC: Normal speech, normal tone. A and O x 3, moves all extremities, no obvious focal deficits. PSYCHIATRIC: Normal affect, normal mood. Stable. SKIN: No ulcerations or rashes, good skin turgor, no jaundice. VASCULAR: Good capillary refill, neurovascular bundle appears to be intact. LABORATORY DATA: Troponin 34 at 1300 today, at 1400 it went up to 191. ASSESSMENT AND PLAN: Chest pain with troponins that were elevating upward, suspect possible acute coronary syndrome. The patient has been admitted. We are checking serial enzymes, serial EKGs. Consult Cardiology. Home meds. DVT prophylaxis. Full code. Cardiac monitoring. ATA/DEDE/AMI DR: ATA/edwina TID: [id number]
[2021-08-13 22:46] VITALS: BP 149/85
[2021-08-14] VITALS (13 sets, daily range): BP systolic 100–142; BP diastolic 62–86
[2021-08-14 03:54] LABS: BASO % 1 % (0-3); EOS # 0.2 x10^3/uL (0.0-0.7); EOS % 3 % (0-3); HEMATOCRIT 39.5 % (39.0-53.0); HEMOGLOBIN 13.3 g/dL (13.0-17.5); LYMPH # 2.1 x10^3/uL (1.0-4.8); LYMPH % 38 % (24-48); MEAN CORPUSCULAR HEMOGLOBIN 32 pg (25-35); MEAN CORPUSCULAR HGB CONC 34 g/dL (31-37); MEAN CORPUSCULAR VOLUME 94 fL (79-100); MONO # 0.5 x10^3/uL (0.0-1.1); MONO % 10 % (0-9); NEUT # 2.7 x10^3/uL (1.8-7.7); NEUT % 49 % (31-73); PLATELET COUNT 204 x10^3/uL (140-400); RED BLOOD COUNT 4.21 x10^6/uL (4.30-5.70); RED CELL DISTRIBUTION WIDTH 13.3 % (11.5-14.5); WHITE BLOOD COUNT 5.6 x10^3/uL (4.0-11.0)
[2021-08-14 04:23] LABS: ALBUMIN 3.5 g/dL (3.4-5.0); ALBUMIN/GLOBULIN RATIO 1.3 (1.0-1.7); CALCIUM 8.7 mg/dL (8.5-10.1); GFR 72.6; POTASSIUM 3.8 mmol/L (3.5-5.1); TOTAL BILIRUBIN 0.5 mg/dL (0.2-1.0); TOTAL PROTEIN 6.3 g/dL (6.4-8.2)
[2021-08-14] MEDS: CLOPIDOGREL BISULFATE 75 MG TABLET PO SCH (08:55)
[2021-08-14] MEDS: PANTOPRAZOLE 40 MG TABLET.DR. PO SCH (08:55)
[2021-08-14] MEDS: LOSARTAN POTASSIUM 50 MG TABLET. PO SCH (08:55)
--- NOTE | 2021-08-14 09:25 | PDOC2 ---
CONSULT Date of Consult Date of Consult DATE: 08/14/21 TIME: 09:25 Reason for Consult Reason for Consult: Non-STEMI Referring Physician Referring Physician: Dr. Maloney Identification/Chief Complaint Chief Complaint Chest pain Source Source: Chart review, Patient History of Present Illness Reason for Visit: 76-year-old male with history of coronary artery disease s/p PCI/stent to RCA in 1999 and late in-stent thrombosis in 2010 after stopping Plavix for colonoscopy presented stating that he had an episode of retrosternal chest pressure, 10/10 severity associated with shortness of breath and dizziness while he was working in his yard. He stated that the pain was similar to the pain he had prior to his stent placement. The pain lasted approximately 1 hour and was relieved with nitroglycerin given by EMS. He denied any orthopnea/PND, palpitations or syncope. Past Medical History Cardiovascular: CAD, HTN, GA, Hyperlipidemia Pulmonary: No pertinent hx CENTRAL NERVOUS SYSTEM: Periperal neuropathy GI: GERD Heme/Onc: No pertinent hx Hepatobiliary: No pertinent hx Psych: No pertinent hx Musculoskeletal: low back pain, Osteoarthritis Rheumatologic: No pertinent hx Infectious disease: No pertinent hx Renal/: No pertinent hx Endocrine: No pertinent hx Past Surgical History Past Surgical History: Arthroscopy, Other Family History Family History: Heart Disease Social History ALCOHOL: other Drugs: None Lives: with Family Current Problem List Problem List Problems Medical Problems: (1) Chest pain Status: Acute Current Medications Current Medications Current Medications Fentanyl Citrate (Fentanyl 2ml Vial) 50 mcg PRN Q15MIN PRN IV PAIN GREATER THAN 3/10; Start 08/13/21 at 13:15; Stop 08/14/21 at 13:14 Ringer's Solution 1,000 ml @ 1,000 mls/hr Q1H IV Last administered on 08/13/21at 13:27; Start 08/13/21 at 13:15; Stop 08/13/21 at 14:14; Status DC Ondansetron HCl (Zofran) 4 mg PRN Q8HRS PRN IVP NAUSEA/VOMITING; Start 08/13/21 at 15:00; Stop 08/14/21 at 14:59 Fentanyl Citrate (Fentanyl 2ml Vial) 50 mcg PRN Q1HR PRN IVP PAIN; Start 08/13/21 at 15:00; Stop 08/14/21 at 14:59 Acetaminophen (Tylenol) 650 mg PRN Q4HRS PRN PO FEVER > 100.3'F; Start 08/13/21 at 15:00; Stop 08/14/21 at 14:59 Nitroglycerin (Nitrostat) 0.4 mg PRN Q5MIN PRN SL CHEST PAIN; Start 08/13/21 at 15:00; Stop 08/14/21 at 14:59 Amitriptyline HCl (Elavil) 25 mg HS PO ; Start 08/14/21 at 21:00 Clopidogrel Bisulfate (Plavix) 75 mg DAILY PO Last administered on 08/14/21at 08:55; Start 08/14/21 at 09:00 Gabapentin (Neurontin) 300 mg DAILY PO ; Start 08/14/21 at 09:00 Losartan Potassium (Cozaar) 50 mg DAILY PO Last administered on 08/14/21at 08:55; Start 08/14/21 at 09:00 Pantoprazole Sodium (Protonix) 40 mg DAILYAC PO Last administered on 08/14/21at 08:55; Start 08/14/21 at 09:00 Atorvastatin Calcium (Lipitor) 80 mg HS PO ; Start 08/14/21 at 21:00 Active Scripts Active Reported Gabapentin (Gabapentin) 300 Mg Capsule 300 Mg PO DAILY Losartan Potassium 50 Mg Tablet 50 Mg PO DAILY Proair Hfa Inhaler (Albuterol Sulfate) 8.5 Gm Hfa.aer.ad 1 Puff INH PRN Q6HRS PRN Proair Hfa Inhaler (Albuterol Sulfate) 8.5 Gm Hfa.aer.ad 1 Puff INH PRN Q6HRS PRN Atorvastatin Calcium 80 Mg Tablet 80 Mg PO HS Pantoprazole Sodium (Pantoprazole Sodium) 40 Mg Tablet.dr 1 Tab PO DAILY Amitriptyline Hcl 25 Mg Tablet 25 Mg PO HS Clopidogrel (Clopidogrel Bisulfate) 75 Mg Tablet 75 Mg PO DAILY Allergies Allergies: Coded Allergies: morphine (Verified Adverse Reaction, Severe, vOMITING, 08/13/21) ROS PSYCHOLOGICAL ROS: No: Hallucinations Eyes: No Loss of vision HEENT: No: Epistaxis Respiratory: YES: Shortness of breath; No: Hemoptysis Cardiovascular: yes Chest Pain Gastrointestinal: No Vomiting, No Diarrhea Genitourinary: No Hematuria Neurological: Yes Dizziness; No Seizures Skin: No Rash Physical Exam General: Alert, Oriented X3 HEENT: Atraumatic Lungs: Clear to auscultation Heart: Regular rate Abdomen: Soft, No tenderness Extremities: No edema Neuro: Normal speech Psych/Mental Status: Mood NL Vitals VITALS Vital Signs Date Time Temp Pulse Resp B/P (MAP) Pulse Ox O2 Delivery O2 Flow Rate FiO2 08/14/21 08:55 65 142/81 08/14/21 07:00 97.7 16 96 Room Air 97.7 Labs Labs Laboratory Tests Test 08/13/21 13:04 08/13/21 13:37 08/13/21 14:10 08/13/21 21:05 White Blood Count 5.2 x10^3/uL (4.0-11.0) Red Blood Count 4.59 x10^6/uL (4.30-5.70) Hemoglobin 14.6 g/dL (13.0-17.5) Hematocrit 42.4 % (39.0-53.0) Mean Corpuscular Volume 92 fL (79-100) Mean Corpuscular Hemoglobin 32 pg (25-35) Mean Corpuscular Hemoglobin Concent 35 g/dL (31-37) Red Cell Distribution Width 13.3 % (11.5-14.5) Platelet Count 224 x10^3/uL (140-400) Neutrophils (%) (Auto) 64 % (31-73) Lymphocytes (%) (Auto) 25 % (24-48) Monocytes (%) (Auto) 8 % (0-9) Eosinophils (%) (Auto) 2 % (0-3) Basophils (%) (Auto) 1 % (0-3) Neutrophils # (Auto) 3.3 x10^3/uL (1.8-7.7) Lymphocytes # (Auto) 1.3 x10^3/uL (1.0-4.8) Monocytes # (Auto) 0.4 x10^3/uL (0.0-1.1) Eosinophils # (Auto) 0.1 x10^3/uL (0.0-0.7) Basophils # (Auto) 0.0 x10^3/uL (0.0-0.2) Prothrombin Time 13.7 SEC (11.7-14.0) Prothromb Time International Ratio 1.1 (0.8-1.1) D-Dimer (Megan) 0.27 ug/mlFEU (0.00-0.50) Sodium Level 139 mmol/L (136-145) Potassium Level 3.9 mmol/L (3.5-5.1) Chloride Level 105 mmol/L (98-107) Carbon Dioxide Level 23 mmol/L (21-32) Anion Gap 11 (6-14) Blood Urea Nitrogen 23 mg/dL (8-26) Creatinine 1.2 mg/dL (0.7-1.3) Estimated GFR (Cockcroft-Gault) 58.9 BUN/Creatinine Ratio 19 (6-20) Glucose Level 110 mg/dL (70-99) Calcium Level 9.2 mg/dL (8.5-10.1) Magnesium Level 2.1 mg/dL (1.8-2.4) Total Bilirubin 0.5 mg/dL (0.2-1.0) Aspartate Amino Transf (AST/SGOT) 44 U/L (15-37) Alanine Aminotransferase (ALT/SGPT) 59 U/L (16-63) Alkaline Phosphatase 64 U/L (46-116) Troponin I High Sensitivity 34 ng/L (4-75) 191 ng/L (4-75) 219 ng/L (4-75) YU-Qrp-I-Type Natriuretic Peptide 191 pg/mL (0-449) Total Protein 6.9 g/dL (6.4-8.2) Albumin 4.1 g/dL (3.4-5.0) Albumin/Globulin Ratio 1.5 (1.0-1.7) Lipase 98 U/L (73-393) Urine Collection Type Unknown Urine Color (Auto) Light yellow Urine Turbidity Clear Urine pH (Auto) 6.5 (<5.0-8.0) Urine Specific [place] 1.011 (1.000-1.030) Urine Protein (Auto) Negative mg/dL (Negative) Urine Glucose (Auto)(UA) Negative mg/dL (Negative) Urine Ketones (Auto) Negative mg/dL (Negative) Urine Blood (Auto) Negative (Negative) Urine Nitrite Negative (Negative) Urine Bilirubin (Auto) Negative (Negative) Urine Urobilinogen (Auto) Normal mg/dL (Normal) Urine Leukocyte Esterase (Auto) Negative (Negative) Urine RBC 0 /HPF (0-2) Urine WBC 0 /HPF (0-4) Urine Bacteria 0 /HPF (0-FEW) Urine Hyaline Casts Few /HPF Urine Mucus Slight /LPF Urine Opiates Screen Neg (NEG) Urine Methadone Screen Neg (NEG) Urine Barbiturates Neg (NEG) Urine Phencyclidine Screen Neg (NEG) Urine Amphetamine/Methamphetamine Neg (NEG) Urine Benzodiazepines Screen Neg (NEG) Urine Cocaine Screen Neg (NEG) Urine Cannabinoids Screen Neg (NEG) Urine Ethyl Alcohol Neg (NEG) Test 08/14/21 03:30 White Blood Count 5.6 x10^3/uL (4.0-11.0) Red Blood Count 4.21 x10^6/uL (4.30-5.70) Hemoglobin 13.3 g/dL (13.0-17.5) Hematocrit 39.5 % (39.0-53.0) Mean Corpuscular Volume 94 fL (79-100) Mean Corpuscular Hemoglobin 32 pg (25-35) Mean Corpuscular Hemoglobin Concent 34 g/dL (31-37) Red Cell Distribution Width 13.3 % (11.5-14.5) Platelet Count 204 x10^3/uL (140-400) Neutrophils (%) (Auto) 49 % (31-73) Lymphocytes (%) (Auto) 38 % (24-48) Monocytes (%) (Auto) 10 % (0-9) Eosinophils (%) (Auto) 3 % (0-3) Basophils (%) (Auto) 1 % (0-3) Neutrophils # (Auto) 2.7 x10^3/uL (1.8-7.7) Lymphocytes # (Auto) 2.1 x10^3/uL (1.0-4.8) Monocytes # (Auto) 0.5 x10^3/uL (0.0-1.1) Eosinophils # (Auto) 0.2 x10^3/uL (0.0-0.7) Basophils # (Auto) 0.0 x10^3/uL (0.0-0.2) Sodium Level 141 mmol/L (136-145) Potassium Level 3.8 mmol/L (3.5-5.1) Chloride Level 106 mmol/L (98-107) Carbon Dioxide Level 26 mmol/L (21-32) Anion Gap 9 (6-14) Blood Urea Nitrogen 23 mg/dL (8-26) Creatinine 1.0 mg/dL (0.7-1.3) Estimated GFR (Cockcroft-Gault) 72.6 BUN/Creatinine Ratio 23 (6-20) Glucose Level 93 mg/dL (70-99) Calcium Level 8.7 mg/dL (8.5-10.1) Total Bilirubin 0.5 mg/dL (0.2-1.0) Aspartate Amino Transf (AST/SGOT) 32 U/L (15-37) Alanine Aminotransferase (ALT/SGPT) 44 U/L (16-63) Alkaline Phosphatase 53 U/L (46-116) Total Protein 6.3 g/dL (6.4-8.2) Albumin 3.5 g/dL (3.4-5.0) Albumin/Globulin Ratio 1.3 (1.0-1.7) Laboratory Tests Test 08/13/21 13:04 08/13/21 13:37 08/13/21 14:10 08/13/21 21:05 White Blood Count 5.2 x10^3/uL (4.0-11.0) Red Blood Count 4.59 x10^6/uL (4.30-5.70) Hemoglobin 14.6 g/dL (13.0-17.5) Hematocrit 42.4 % (39.0-53.0) Mean Corpuscular Volume 92 fL (79-100) Mean Corpuscular Hemoglobin 32 pg (25-35) Mean Corpuscular Hemoglobin Concent 35 g/dL (31-37) Red Cell Distribution Width 13.3 % (11.5-14.5) Platelet Count 224 x10^3/uL (140-400) Neutrophils (%) (Auto) 64 % (31-73) Lymphocytes (%) (Auto) 25 % (24-48) Monocytes (%) (Auto) 8 % (0-9) Eosinophils (%) (Auto) 2 % (0-3) Basophils (%) (Auto) 1 % (0-3) Neutrophils # (Auto) 3.3 x10^3/uL (1.8-7.7) Lymphocytes # (Auto) 1.3 x10^3/uL (1.0-4.8) Monocytes # (Auto) 0.4 x10^3/uL (0.0-1.1) Eosinophils # (Auto) 0.1 x10^3/uL (0.0-0.7) Basophils # (Auto) 0.0 x10^3/uL (0.0-0.2) Prothrombin Time 13.7 SEC (11.7-14.0) Prothromb Time International Ratio 1.1 (0.8-1.1) D-Dimer (Megan) 0.27 ug/mlFEU (0.00-0.50) Sodium Level 139 mmol/L (136-145) Potassium Level 3.9 mmol/L (3.5-5.1) Chloride Level 105 mmol/L (98-107) Carbon Dioxide Level 23 mmol/L (21-32) Anion Gap 11 (6-14) Blood Urea Nitrogen 23 mg/dL (8-26) Creatinine 1.2 mg/dL (0.7-1.3) Estimated GFR (Cockcroft-Gault) 58.9 BUN/Creatinine Ratio 19 (6-20) Glucose Level 110 mg/dL (70-99) Calcium Level 9.2 mg/dL (8.5-10.1) Magnesium Level 2.1 mg/dL (1.8-2.4) Total Bilirubin 0.5 mg/dL (0.2-1.0) Aspartate Amino Transf (AST/SGOT) 44 U/L (15-37) Alanine Aminotransferase (ALT/SGPT) 59 U/L (16-63) Alkaline Phosphatase 64 U/L (46-116) Troponin I High Sensitivity 34 ng/L (4-75) 191 ng/L (4-75) 219 ng/L (4-75) PC-Muq-B-Type Natriuretic Peptide 191 pg/mL (0-449) Total Protein 6.9 g/dL (6.4-8.2) Albumin 4.1 g/dL (3.4-5.0) Albumin/Globulin Ratio 1.5 (1.0-1.7) Lipase 98 U/L (73-393) Urine Collection Type Unknown Urine Color (Auto) Light yellow Urine Turbidity Clear Urine pH (Auto) 6.5 (<5.0-8.0) Urine Specific [place] 1.011 (1.000-1.030) Urine Protein (Auto) Negative mg/dL (Negative) Urine Glucose (Auto)(UA) Negative mg/dL (Negative) Urine Ketones (Auto) Negative mg/dL (Negative) Urine Blood (Auto) Negative (Negative) Urine Nitrite Negative (Negative) Urine Bilirubin (Auto) Negative (Negative) Urine Urobilinogen (Auto) Normal mg/dL (Normal) Urine Leukocyte Esterase (Auto) Negative (Negative) Urine RBC 0 /HPF (0-2) Urine WBC 0 /HPF (0-4) Urine Bacteria 0 /HPF (0-FEW) Urine Hyaline Casts Few /HPF Urine Mucus Slight /LPF Urine Opiates Screen Neg (NEG) Urine Methadone Screen Neg (NEG) Urine Barbiturates Neg (NEG) Urine Phencyclidine Screen Neg (NEG) Urine Amphetamine/Methamphetamine Neg (NEG) Urine Benzodiazepines Screen Neg (NEG) Urine Cocaine Screen Neg (NEG) Urine Cannabinoids Screen Neg (NEG) Urine Ethyl Alcohol Neg (NEG) Test 08/14/21 03:30 White Blood Count 5.6 x10^3/uL (4.0-11.0) Red Blood Count 4.21 x10^6/uL (4.30-5.70) Hemoglobin 13.3 g/dL (13.0-17.5) Hematocrit 39.5 % (39.0-53.0) Mean Corpuscular Volume 94 fL (79-100) Mean Corpuscular Hemoglobin 32 pg (25-35) Mean Corpuscular Hemoglobin Concent 34 g/dL (31-37) Red Cell Distribution Width 13.3 % (11.5-14.5) Platelet Count 204 x10^3/uL (140-400) Neutrophils (%) (Auto) 49 % (31-73) Lymphocytes (%) (Auto) 38 % (24-48) Monocytes (%) (Auto) 10 % (0-9) Eosinophils (%) (Auto) 3 % (0-3) Basophils (%) (Auto) 1 % (0-3) Neutrophils # (Auto) 2.7 x10^3/uL (1.8-7.7) Lymphocytes # (Auto) 2.1 x10^3/uL (1.0-4.8) Monocytes # (Auto) 0.5 x10^3/uL (0.0-1.1) Eosinophils # (Auto) 0.2 x10^3/uL (0.0-0.7) Basophils # (Auto) 0.0 x10^3/uL (0.0-0.2) Sodium Level 141 mmol/L (136-145) Potassium Level 3.8 mmol/L (3.5-5.1) Chloride Level 106 mmol/L (98-107) Carbon Dioxide Level 26 mmol/L (21-32) Anion Gap 9 (6-14) Blood Urea Nitrogen 23 mg/dL (8-26) Creatinine 1.0 mg/dL (0.7-1.3) Estimated GFR (Cockcroft-Gault) 72.6 BUN/Creatinine Ratio 23 (6-20) Glucose Level 93 mg/dL (70-99) Calcium Level 8.7 mg/dL (8.5-10.1) Total Bilirubin 0.5 mg/dL (0.2-1.0) Aspartate Amino Transf (AST/SGOT) 32 U/L (15-37) Alanine Aminotransferase (ALT/SGPT) 44 U/L (16-63) Alkaline Phosphatase 53 U/L (46-116) Total Protein 6.3 g/dL (6.4-8.2) Albumin 3.5 g/dL (3.4-5.0) Albumin/Globulin Ratio 1.3 (1.0-1.7) Assessment/Plan Assessment/Plan 1. Non-STEMI in a patient with known history of coronary artery disease s/p PCI/stent placement to RCA in 1999 and subsequent late in-stent thrombosis in 2010. Recent 2D echo 11/24 showed LVEF 50%. Plan for cardiac catheterization and possible angioplasty. Risks and benefits were explained and he is agreeable. 2. Hypertension: Controlled 3. Hyperlipidemia: Continue statins and fibrates. Recent lipid profile showed LDL at 73. Thank you for your consultation FLAKITO FELIZ MD Aug 14, 2021 09:25
[2021-08-14] MEDS ORDERED: fentaNYL PF VIAL 100 MCG/2 ML VIAL ONE (10:06)
[2021-08-14] MEDS ORDERED: HEPARIN for IV BOLUS 10,000 UNIT/10 ML VIAL. ONE (10:07)
[2021-08-14] MEDS ORDERED: NITROGLYCERIN 200 MCG/2 ML SYRINGE FOR CATH/VASC LAB. ONE (10:07)
[2021-08-14] MEDS ORDERED: MIDAZOLAM HCL/PF 2 MG/2 ML VIAL. ONE (10:07)
[2021-08-14] MEDS ORDERED: VERAPAMIL 5 MG/2 ML VIAL. ONE (10:07)
--- NOTE | 2021-08-14 10:18 | PDOC ---
MODERATE SEDATION ASSESSMENT RISKS/ALTERNATIVES Risks/Alternatives Risks and alternatives of this type of sedation and procedure discussed with: RISK/ALTERNATIVES: Patient H & P ON CHART H & P H & P on chart and reviewed for co-morbid conditions and appropriate labs. H&P ON CHART: Yes STATUS PREG STATUS ASSESSED: N/A MEDS/ALLERGIES REVIEWED Meds/Allergies Reviewed Medications and Allergies including time and route of recently administered narcotics and sedatives. MEDS/ALLERGIES REVIEWED: Yes ASA RATING ASA RATING: III AIRWAY ASSESSMENT Airway Assessment Airway patency, oral function limitations, presence of caps, crowns, dentures, partials, and ability to extend neck assessed. AIRWAY ASSESSMENT: Yes MALLAMPATI SCORE MALLAMPATI SCORE: II PRE-SEDATION ASSESSMENT PRE-SEDATION ASSESSMENT: Yes FLAKITO FELIZ MD Aug 14, 2021 10:18
[2021-08-14] MEDS ORDERED: IODIXANOL 320 MG/ML 100 ML VIAL. ONE (10:19)
[2021-08-14] MEDS ORDERED: LIDOCAINE 1% PF 2 ML VIAL. ONE (10:19)
[2021-08-14] MEDS ORDERED: CONTRAST GIVEN. MC PRN (11:00)
[2021-08-14] MEDS ORDERED: LIDOCAINE 1% PF 2 ML VIAL. INJ ONE (11:00)
[2021-08-14] MEDS ORDERED: VERAPAMIL 5 MG/2 ML VIAL. IART ONE (11:00)
[2021-08-14] MEDS ORDERED: HEPARIN for IV BOLUS 10,000 UNIT/10 ML VIAL. IART ONE (11:00)
[2021-08-14] MEDS ORDERED: NITROGLYCERIN 200 MCG/2 ML SYRINGE FOR CATH/VASC LAB. IART ONE (11:00)
[2021-08-14] MEDS ORDERED: MIDAZOLAM HCL/PF 2 MG/2 ML VIAL. IV ONE (11:00)
[2021-08-14] MEDS ORDERED: IODIXANOL 320 MG/ML 100 ML VIAL. IART ONE (11:00)
[2021-08-14] MEDS ORDERED: fentaNYL PF VIAL 100 MCG/2 ML VIAL IV ONE (11:00)
[2021-08-14] MEDS ORDERED: ADENOSINE 90 MG/30 ML VIAL. IV ONE (11:06)
[2021-08-14] MEDS ORDERED: ACETAMINOPHEN 325 MG TABLET. PO PRN (11:30)
[2021-08-14] MEDS ORDERED: CLOPIDOGREL BISULFATE 75 MG TABLET PO ONE (11:30)
[2021-08-14] MEDS ORDERED: ADENOSINE 100MCG/ML SYRINGE. INT CORON ONE (11:30)
[2021-08-14] MEDS ORDERED: ASPIRIN 325 MG TABLET PO ONE (11:30)
[2021-08-14] MEDS ORDERED: CLOPIDOGREL BISULFATE 75 MG TABLET ONE (11:36)
[2021-08-14] MEDS ORDERED: ASPIRIN 325 MG TABLET ONE (11:36)
--- NOTE | 2021-08-14 11:57 | CARD ---
MR#: [id number] Date of Study: 08/14/2021 Ordering Physician: FLAKITO FELIZ, Referring Physician: FLAKITO FELIZ, Tech: RT Zeferino(R)() APPROVED REPORT Technologist: RT Zeferino(R)() Nurse: Franca Storey RN Procedure(s) performed: 1. Left heart catheterization, selective coronary angiography and left ventr iculography via right transradial approach 2. Instantaneous wave free ratio (IFR) and fractional flow reserve (FFR) measurement to left anterio r descending artery stenosis 3. Successful PCI/drug-eluting stent placement to the left anterior descending artery fluoro time:7.6 min dose: 64 Gycm2 contrast: 140ml Mod Sed: 40 min INDICATION The indication(s) include : non-STEMI . [facility] Clinical Frailty Scale [facility] Clinical Frailty Scale: Managing Well Heart Failure Heart Failure: No CASE TECHNIQUE IV conscious sedation was used throughout procedure with appropriate monitoring and was performed in the presence of a registered nurse who was an independent trained observer other than the physician p erforming the procedure. During this case, Fluoroscopy and low osmolar contrast were used for imaging . Specimen(s) Removed: No Estimated Blood loss: 15 cc's. PROCEDURE NARRATIVE After explaining the risks, benefits and alternative options, informed consent was obtained from marisa ent. Patient was brought to the cardiac Duplication Specialist and right wrist was prepped and draped in the usual fashion after confirming a positive modified Chepe's test. Arterial access was obtained in the [facility] radial artery and a 6 [place] sheath was inserted. 6 [place] Paxton catheter was used to perform zeeshan ective angiography of the left and right coronary arteries. 6 [place] pigtail catheter was used to pe rform left ventriculography. Since patient was found to have angiographically borderline significant stenosis involving the left anterior descending artery, a decision was made to assess physiologic si gnificance using instantaneous wave free ratio (IFR) measurement. The left main coronary artery was engaged with a 6 [place] XB 3.5 guide catheter and the stenosis in the mid segment of the left anterio r descending artery was crossed with [place] pressure wire. iFR measurement was made there was bord bryant at 0.90-0.91. Hence we decided to interrogate this further using fractional flow reserve [place] urement (FFR) measurement. Patient was given intravenous adenosine per protocol and FFR measurement was made there was significant at 0.79. FINDINGS 1. Hemodynamics: Left ventricular end-diastolic pressure of 22 mmHg. No pullback gradient across th e aortic valve. 2. Left ventriculography: Normal left ventricle systolic function with ejection fraction estimated at 50-55%. No significant mitral regurgitation seen. 3. Coronary angiography: a. The left main coronary artery arose from the left sinus of Valsalva, gave rise to the left anteri or descending and left circumflex arteries and did not show any significant stenosis. b. The left anterior descending artery showed 70% stenosis in the midsegment that was physiologicall y significant based on FFR measurement of 0.79. The diagonal branch showed 40% stenosis in the midse gment. c. The left circumflex artery did not show any significant stenosis. d. The right coronary artery was a large and dominant vessel arising from the right sinus of Valsalv a that showed widely patent stent in the proximal to mid segment. INTERVENTION The left main coronary artery was previously engaged with XB 3.5 guide catheter as stated above and t he lesion in the mid segment of the left anterior descending artery was crossed with the pressure wir e for FFR measurement. We used the same wire for intervention. The stenosis was predilated with 2.5 x 15 mm Euphora balloon following which this was successfully treated with a 2.75 x 22 mm resolute O nyx drug-eluting stent. Follow-up angiography showed resolution of the stenosis to 0% with RADHAMES-3 di stal flow. Patient tolerated the procedure well. Hemostasis was achieved using TR band. There were no immediate complications. RADHAMES Flow RADHAMES Flow (Pre-Intervention): RADHAMES-3 RADHAMES Flow (Post-Intervention): RADHAMES-3 Conclusion 1. 70% stenosis involving the mid segment of the left anterior descending artery, physiologically si gnificant based on FFR measurement of 0.79. The previously placed stent in the proximal to mid segme nt of the right coronary artery was widely patent. 2. Successful PCI/drug-eluting stent placement to the left and to descending artery. 3. Normal left ventricle systolic function with ejection fraction estimated at 50 to 55%. Recommendations 1. Aspirin 325 mg daily for 1 month followed by 81 mg daily 2. Plavix 75 mg daily 3. Cardiovascular risk factor modification Signed by : Flakito Feliz, Electronically Approved : 08/14/2021 11:56:50
[2021-08-14] MEDS: GABAPENTIN 300 MG CAPSULE. PO SCH (12:07)
[2021-08-14] MEDS: IV 1/2 NORMAL SALINE 1,000 ML IV SCH ×2 (12:53→19:59)
--- NOTE | 2021-08-14 14:24 | PDOC ---
[employer] PROGRESS NOTE Date of Service DOS: DATE: 08/14/21 TIME: 14:20 Chief Complaint Chief Complaint 1. Non-STEMI 2. CAD 3. Hypertension, Hyperlipidemia: History of Present Illness History of Present Illness cath today will follow med optimization, dc in AM Vitals/I&O Vitals/I&O: Vital Signs Date Time Temp Pulse Resp B/P (MAP) Pulse Ox O2 Delivery O2 Flow Rate FiO2 08/14/21 12:59 100/62 (75) 08/14/21 12:44 68 08/14/21 12:00 97.8 16 Room Air 97.8 08/14/21 11:45 99 2.0 I & O 08/13/21 08/13/21 08/14/21 15:00 23:00 07:00 Intake Total 1000 ml 50 ml 500 ml Balance 1000 ml 50 ml 500 ml Physical Exam General: Alert, Oriented X3 Heart: Regular rate Lungs: Crackles Abdomen: Soft, No tenderness Extremities: No edema Labs Labs: Laboratory Tests Test 08/13/21 21:05 08/14/21 03:30 Troponin I High Sensitivity 219 ng/L (4-75) White Blood Count 5.6 x10^3/uL (4.0-11.0) Red Blood Count 4.21 x10^6/uL (4.30-5.70) Hemoglobin 13.3 g/dL (13.0-17.5) Hematocrit 39.5 % (39.0-53.0) Mean Corpuscular Volume 94 fL (79-100) Mean Corpuscular Hemoglobin 32 pg (25-35) Mean Corpuscular Hemoglobin Concent 34 g/dL (31-37) Red Cell Distribution Width 13.3 % (11.5-14.5) Platelet Count 204 x10^3/uL (140-400) Neutrophils (%) (Auto) 49 % (31-73) Lymphocytes (%) (Auto) 38 % (24-48) Monocytes (%) (Auto) 10 % (0-9) Eosinophils (%) (Auto) 3 % (0-3) Basophils (%) (Auto) 1 % (0-3) Neutrophils # (Auto) 2.7 x10^3/uL (1.8-7.7) Lymphocytes # (Auto) 2.1 x10^3/uL (1.0-4.8) Monocytes # (Auto) 0.5 x10^3/uL (0.0-1.1) Eosinophils # (Auto) 0.2 x10^3/uL (0.0-0.7) Basophils # (Auto) 0.0 x10^3/uL (0.0-0.2) Sodium Level 141 mmol/L (136-145) Potassium Level 3.8 mmol/L (3.5-5.1) Chloride Level 106 mmol/L (98-107) Carbon Dioxide Level 26 mmol/L (21-32) Anion Gap 9 (6-14) Blood Urea Nitrogen 23 mg/dL (8-26) Creatinine 1.0 mg/dL (0.7-1.3) Estimated GFR (Cockcroft-Gault) 72.6 BUN/Creatinine Ratio 23 (6-20) Glucose Level 93 mg/dL (70-99) Calcium Level 8.7 mg/dL (8.5-10.1) Total Bilirubin 0.5 mg/dL (0.2-1.0) Aspartate Amino Transf (AST/SGOT) 32 U/L (15-37) Alanine Aminotransferase (ALT/SGPT) 44 U/L (16-63) Alkaline Phosphatase 53 U/L (46-116) Total Protein 6.3 g/dL (6.4-8.2) Albumin 3.5 g/dL (3.4-5.0) Albumin/Globulin Ratio 1.3 (1.0-1.7) Assessment and Plan Assessmemt and Plan Problems Medical Problems: (1) Chest pain Status: Acute Comment Review of Relevant I have reviewed the following items bill (where applicable) has been applied. Medications: Current Medications Medications (Trade) Dose Ordered Sig/Magda Route PRN Reason Start Time Stop Time Status Last Admin Dose Admin Clopidogrel Bisulfate (Plavix) 75 mg DAILY PO 08/14/21 09:00 08/14/21 08:55 Gabapentin (Neurontin) 300 mg DAILY PO 08/14/21 09:00 08/14/21 12:07 Losartan Potassium (Cozaar) 50 mg DAILY PO 08/14/21 09:00 08/14/21 08:55 Pantoprazole Sodium (Protonix) 40 mg DAILYAC PO 08/14/21 09:00 08/14/21 08:55 Nitroglycerin (Nitroglycerin) 200 mcg 1X ONCE IART 08/14/21 11:00 08/14/21 11:01 DC 08/14/21 10:48 Verapamil HCl (Verapamil) 2.5 mg 1X ONCE IART 08/14/21 11:00 08/14/21 11:01 DC 08/14/21 10:48 Heparin Sodium (Porcine) (Heparin Sodium) 2,500 unit 1X ONCE IART 08/14/21 11:00 08/14/21 11:01 DC 08/14/21 10:48 Heparin Sodium/ Sodium Chloride (HEPARIN for ARTERIAL LINE FLUSH) 1,000 unit 1X ONCE IART 08/14/21 11:00 08/14/21 11:01 DC 08/14/21 11:00 Heparin Sodium/ Sodium Chloride (HEPARIN for ARTERIAL LINE FLUSH) 1,000 unit 1X ONCE IART 08/14/21 11:00 08/14/21 11:01 DC 08/14/21 11:00 Midazolam HCl (Versed) 2 mg 1X ONCE IV 08/14/21 11:00 08/14/21 11:01 DC 08/14/21 10:47 Fentanyl Citrate (Fentanyl 2ml Vial) 100 mcg 1X ONCE IV 08/14/21 11:00 08/14/21 11:01 DC 08/14/21 10:47 Iodixanol (Visipaque 320) 100 ml 1X ONCE IART 08/14/21 11:00 08/14/21 11:01 DC 08/14/21 11:26 Lidocaine HCl (Xylocaine-Mpf 1% 2ml Vial) 2 ml 1X ONCE INJ 08/14/21 11:00 08/14/21 11:01 DC 08/14/21 10:47 Adenosine (Adenocard) 100 mcg 1X ONCE INT CORON 08/14/21 11:30 08/14/21 11:31 DC 08/14/21 11:08 Clopidogrel Bisulfate (Plavix) 75 mg 1X ONCE PO 08/14/21 11:30 08/14/21 11:31 DC 08/14/21 11:30 Sodium Chloride 1,000 ml @ 75 mls/hr [id number] IV 08/14/21 12:00 08/14/21 12:53 Aspirin (Jocy Aspirin) 325 mg 1X ONCE PO 08/14/21 11:30 08/14/21 11:33 DC 08/14/21 11:30 Justifications for Admission Other Justification DELVIS CANTU MD Aug 14, 2021 14:24
[2021-08-14] MEDS ORDERED: METO-239 PO (20:26)
[2021-08-14] MEDS ORDERED: ATORVASTATIN CALCIUM 40 MG TABLET. PO SCH (21:00)
[2021-08-14] MEDS ORDERED: METOPROLOL SUCC 24HR ER 25 MG TAB.ER.24H. PO SCH (21:00)
[2021-08-14] MEDS ORDERED: AMITRIPTYLINE HCL 25 MG TABLET. PO SCH (21:00)
[2021-08-15] MEDS: IV 1/2 NORMAL SALINE 1,000 ML IV SCH (01:20)
[2021-08-15 03:45] VITALS: BP 129/82
[2021-08-15 05:38] LABS: BASO % 1 % (0-3); EOS # 0.2 x10^3/uL (0.0-0.7); EOS % 3 % (0-3); HEMATOCRIT 39.6 % (39.0-53.0); HEMOGLOBIN 13.3 g/dL (13.0-17.5); LYMPH # 1.8 x10^3/uL (1.0-4.8); LYMPH % 32 % (24-48); MEAN CORPUSCULAR HEMOGLOBIN 31 pg (25-35); MEAN CORPUSCULAR HGB CONC 34 g/dL (31-37); MEAN CORPUSCULAR VOLUME 93 fL (79-100); MONO # 0.5 x10^3/uL (0.0-1.1); MONO % 8 % (0-9); NEUT # 3.2 x10^3/uL (1.8-7.7); NEUT % 56 % (31-73); PLATELET COUNT 210 x10^3/uL (140-400); RED BLOOD COUNT 4.25 x10^6/uL (4.30-5.70); RED CELL DISTRIBUTION WIDTH 13.6 % (11.5-14.5); WHITE BLOOD COUNT 5.6 x10^3/uL (4.0-11.0)
[2021-08-15] MEDS: PANTOPRAZOLE 40 MG TABLET.DR. PO SCH (05:52)
[2021-08-15 06:04] LABS: ALBUMIN 3.5 g/dL (3.4-5.0); ALBUMIN/GLOBULIN RATIO 1.2 (1.0-1.7); CALCIUM 8.5 mg/dL (8.5-10.1); CREATININE 0.9 mg/dL (0.7-1.3); POTASSIUM 3.9 mmol/L (3.5-5.1); TOTAL BILIRUBIN 0.4 mg/dL (0.2-1.0); TOTAL PROTEIN 6.4 g/dL (6.4-8.2)
[2021-08-15 06:35] VITALS: BP 118/77
[2021-08-15] MEDS ORDERED: ASPI325T11 PO (07:35)
[2021-08-15] MEDS ORDERED: CLOP75TA PO (07:35)
--- NOTE | 2021-08-15 07:36 | DISCH ---
DISCHARGE INSTRUCTIONS Condition on Discharge Condition on Discharge: Stable Activity After Discharge Activity Instructions for Disc: Activity as tolerated Lifting Instructions after Dis: Do not lift >10 pounds Exercise Instruction after Dis: Walk 30 min, 5 x per week Driving Instructions after Dis: Do not drive today Weight Bearing Status after Di: As tolerated Diet after Discharge Diet after Discharge: Cardiac, Diabetic No Calorie Level Follow-Up Follow up with: PCP within 2 weeks of discharge Follow Up With: Cardiology as scheduled or as needed EDISON RUSSELL MD Aug 15, 2021 07:36
[2021-08-15] MEDS ORDERED: ASPIRIN ENTERIC COATED 325 MG TABLET.DR. PO SCH (08:00)
[2021-08-15] MEDS: CLOPIDOGREL BISULFATE 75 MG TABLET PO SCH (08:35)
[2021-08-15] MEDS: GABAPENTIN 300 MG CAPSULE. PO SCH (08:35)
[2021-08-15] MEDS: LOSARTAN POTASSIUM 50 MG TABLET. PO SCH (08:36)
[2021-08-15 11:00] VITALS: BP 128/74
--- NOTE | 2021-08-15 11:29 | NUR ---
SS following for discharge planning. SS reviewed pt chart and discussed with pt RN. Pt is from home with spouse and is currently on room air. Cardiology following. Pt had heart cath on 08/14/2021. Discharge order on the chart for home with self care.
--- NOTE | 2021-08-15 11:49 | EKG ---
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
--- NOTE | 2021-08-15 11:49 | EKG ---
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
--- NOTE | 2021-08-15 12:00 | PDOC ---
RUDDY AGUILAR NARENDRA 08/15/21 1200: CARDIO Progress Notes Date and Time Date of Service 08/15/21 Time of Evaluation 1150 Subjective Subjective: No Chest Pain, No shortness of breath, No Palpitations Vitals Vitals Vital Signs Date Time Temp Pulse Resp B/P (MAP) Pulse Ox O2 Delivery O2 Flow Rate FiO2 08/15/21 11:00 98.4 61 18 128/74 (92) 95 Room Air 98.4 08/14/21 11:45 2.0 Weight Weight [ ] Input and Output Intake and Output Intake and Output 08/15/21 07:00 Intake Total 900 ml Output Total 2200 ml Balance -1300 ml Intake Oral 900 ml Output Urine Total 2200 ml # Voids 1 Laboratory Labs Laboratory Tests Test 08/15/21 04:00 White Blood Count 5.6 x10^3/uL (4.0-11.0) Red Blood Count 4.25 x10^6/uL (4.30-5.70) Hemoglobin 13.3 g/dL (13.0-17.5) Hematocrit 39.6 % (39.0-53.0) Mean Corpuscular Volume 93 fL (79-100) Mean Corpuscular Hemoglobin 31 pg (25-35) Mean Corpuscular Hemoglobin Concent 34 g/dL (31-37) Red Cell Distribution Width 13.6 % (11.5-14.5) Platelet Count 210 x10^3/uL (140-400) Neutrophils (%) (Auto) 56 % (31-73) Lymphocytes (%) (Auto) 32 % (24-48) Monocytes (%) (Auto) 8 % (0-9) Eosinophils (%) (Auto) 3 % (0-3) Basophils (%) (Auto) 1 % (0-3) Neutrophils # (Auto) 3.2 x10^3/uL (1.8-7.7) Lymphocytes # (Auto) 1.8 x10^3/uL (1.0-4.8) Monocytes # (Auto) 0.5 x10^3/uL (0.0-1.1) Eosinophils # (Auto) 0.2 x10^3/uL (0.0-0.7) Basophils # (Auto) 0.0 x10^3/uL (0.0-0.2) Sodium Level 142 mmol/L (136-145) Potassium Level 3.9 mmol/L (3.5-5.1) Chloride Level 108 mmol/L (98-107) Carbon Dioxide Level 25 mmol/L (21-32) Anion Gap 9 (6-14) Blood Urea Nitrogen 14 mg/dL (8-26) Creatinine 0.9 mg/dL (0.7-1.3) Estimated GFR (Cockcroft-Gault) 82.0 BUN/Creatinine Ratio 16 (6-20) Glucose Level 95 mg/dL (70-99) Calcium Level 8.5 mg/dL (8.5-10.1) Total Bilirubin 0.4 mg/dL (0.2-1.0) Aspartate Amino Transf (AST/SGOT) 32 U/L (15-37) Alanine Aminotransferase (ALT/SGPT) 46 U/L (16-63) Alkaline Phosphatase 55 U/L (46-116) Total Protein 6.4 g/dL (6.4-8.2) Albumin 3.5 g/dL (3.4-5.0) Albumin/Globulin Ratio 1.2 (1.0-1.7) Physical Exam HEENT: Neck Supple W Full Motion Chest: Symmetric LUNGS: Clear to Auscultation Heart: RRR Abdomen: Soft N/T Extremities: No Edema, Other (right radial arteriotomy site soft, clean, and dry. No hematoma. Neurovascular status intact) Neurology: alert, oriented, follow commands Assessment Assessment 1. Non-STEMI 2. 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 Recent 2D echo 11/24 showed LVEF 50%. LHC with 70% stenosis involving the mid LAD, physiologically significant based on FFR measurement. S/p successful PCI/KOLTON to the LAD. Previously placed RCA stent was widely patent. 2. Hypertension: Controlled 3. Hyperlipidemia: Continue statins and fibrates. Recent lipid profile showed LDL at 73. Recommendations Echocardiogram Secondary prevention including DAPT with ASA/Plavix (ASA 325mg x1 month then 81ng thereafter) Risk stratification modification Cardiac rehab referral Follow up in our office with Dr. Márquez as scheduled Okay to discharge from a CV standpoint Justicifation of Admission Dx: Justifications for Admission: Justification of Admission Dx: Yes [place]: Acute NSTEMI (CAD s/p PCI/KOLTON to LAD) FLAKITO MÁRQUEZ MD 08/15/212044: CARDIO Progress Notes Assessment Assessment Patient seen and examined. Agree with SERVICE TESTER's assessment and plan as stated above RUDDY AGUILAR APRN Aug 15, 2021 12:00 FLAKITO MÁRQUEZ MD Aug 15, 2021 20:45
--- NOTE | 2021-08-15 14:55 | NUR ---
Discharge Note: MASON BELL [address] [place] [address] Discharge instructions and discharge home medications reviewed with Patient and a copy given. All questions have been answered and understanding verbalized. The following instructions and handouts were given: discharge instructions, med list, post cath instructions, nstemi, cad education, follow ups, cardiac rehab number. Discontinued lines and drains: Peripheral IV intact. Patient discharged to Home or Self Care with Spouse via Wheelchair at 1455.
--- NOTE | 2021-08-15 16:11 | CARD ---
MR#: [id number] Date of Study: 08/15/2021 Ordering Physician: RUDDY AGUILAR, Referring Physician: RUDDY AGUILAR, Tech: Zoë Enrique [facility] APPROVED REPORT EXAM: Two-dimensional and M-mode echocardiogram with Doppler and color Doppler. Other Information Quality : AverageHR: 60bpm Rhythm : NSR INDICATION Non STEMI RISK FACTORS Hypertension Obesity Hyperlipidemia 2D DIMENSIONS RVDd3.6 (2.9-3.5cm)Left Atrium(2D)3.2 (1.6-4.0cm) IVSd1.2 (0.7-1.1cm)Aortic Root(2D)3.5 (2.0-3.7cm) LVDd4.1 (3.9-5.9cm)LVOT Diameter2.2 (1.8-2.4cm) PWd0.9 (0.7-1.1cm)LVDs2.8 (2.5-4.0cm) FS (%) 31.1 %SV44.8 ml LVEF(%)59.3 (>50%) Aortic Valve AoV Peak Moi.146.4cm/sAoV VTI24.7cm AO Peak GR.8.6mmHgLVOT Peak Moi.100.6cm/s AO Mean GR.4mmHgAVA (VMAX)2.59cm2 Mitral Valve MV E Ovihgijp84.9cm/sMV DECEL [id number] MV A Rhhsbxmd87.2cm/sE/A Ratio0.6 Pulmonary Valve PV Peak Pkzphsus76.9cm/s Tricuspid Valve TR P. Odzbjofb239bc/sTR Peak Gr.20mmHg LEFT VENTRICLE The left ventricle is normal size. There is borderline concentric left ventricular hypertrophy. The l eft ventricular systolic function is normal and the ejection fraction is within normal range. Estimat ed ejection fraction 60%. There is normal LV segmental wall motion. Transmitral Doppler flow pattern is Grade I-abnormal relaxation pattern. RIGHT VENTRICLE The right ventricle is borderline dilated. There is normal right ventricular wall thickness. The righ t ventricular systolic function is normal. ATRIA The left atrium size is normal. The right atrium size is normal. The interatrial septum is intact wit h no evidence for an atrial septal defect or patent foramen ovale as noted on 2-D or Doppler imaging. AORTIC VALVE The aortic valve is normal in structure and function. Doppler and Color Flow revealed trace to mild a ortic regurgitation. There is no significant aortic valvular stenosis. MITRAL VALVE The mitral valve is normal in structure and function. There is no evidence of mitral valve prolapse. There is no mitral valve stenosis. Doppler and Color-flow revealed trace mitral regurgitation. TRICUSPID VALVE The tricuspid valve is normal in structure and function. Doppler and Color Flow revealed trace tricus pid regurgitation. Estimated PAP 25 mmHg. There is no tricuspid valve stenosis. PULMONIC VALVE Doppler and Color Flow revealed no pulmonic valvular regurgitation. There is no pulmonic valvular erlin nosis. GREAT VESSELS The aortic root is normal in size. The ascending aorta is normal in size. The IVC is normal in size a nd collapses >50% with inspiration. PERICARDIAL EFFUSION There is no evidence of significant pericardial effusion. Critical Notification Critical Value: No <Conclusion> The left ventricular systolic function is normal and the ejection fraction is within normal range. E stimated ejection fraction 60%. There is normal LV segmental wall motion. Signed by : Shukri Miles, Electronically Approved : 08/15/2021 16:11:17
--- NOTE | 2021-08-21 13:44 | PDOC3 ---
[facility]-Discharge Summary Date of Admission: Date of Admission: Aug 13, 2021 Date of Discharge: Date of Discharge: Aug 15, 2021 Discharge Diagnosis: Discharge Diagnosis: 1. Non-STEMI 2. CAD; s/p previous PCI/stent placement to RCA in 1999 2. Hypertension 3. Hyperlipidemia Consults: Consults: Per cardiology: Recommendations Echocardiogram Secondary prevention including DAPT with ASA/Plavix (ASA 325mg x1 month then 81ng thereafter) Risk stratification modification Cardiac rehab referral Follow up in our office with Dr. Márquez as scheduled Okay to discharge from a CV standpoint Procedures: Procedures: [facility] Conclusion 1. 70% stenosis involving the mid segment of the left anterior descending artery, physiologically significant based on FFR measurement of 0.79. The previously placed stent in the proximal to mid segment of the right coronary artery was widely patent. 2. Successful PCI/drug-eluting stent placement to the left and to descending artery. 3. Normal left ventricle systolic function with ejection fraction estimated at 50 to 55%. Recommendations 1. Aspirin 325 mg daily for 1 month followed by 81 mg daily 2. Plavix 75 mg daily 3. Cardiovascular risk factor modification Hospital Course: Hospital Course: 76-year-old male who presentswith chest pain. He states he was cutting some laguerre d today. He broke out in a cold sweat. He was short of breath. He had chest pain. He has 3 previous coronary stents to the right coronary artery. He states he had echocardiogram in June with Dr. Márquez and it was okay. We are going to admit the patient and consult Dr. Márquez. Patient underwent successful catheterization with intervention. By day of discharge patient was clinically stable and ready to go home. He will follow closely with cardiology. Rest of hospital course was uneventful. Disposition: Disposition/Orders: D/C to Home Activity: Activity: Resume previous activity Diet: Diet: Cardiac Medications: Home Meds Active Scripts Aspirin (ASPIRIN EC) 325 Mg Tablet., 325 MG PO DAILYWBKFT for heart disease for 30 Days, #30 TAB.SR Prov:EDISON RUSSELL MD 08/15/21 Clopidogrel Bisulfate (CLOPIDOGREL) 75 Mg Tablet, 75 MG PO DAILY for stent for 30 Days, #30 TAB Prov:EDISON RUSSELL MD 08/15/21 Reported Medications Metoprolol Succinate (METOPROLOL SUCCINATE ( XL )) 25 Mg Tab.er.24h, 25 MG PO QHS for FOR HYPERTENSION, #30 TAB 0 Refills 08/14/21 Gabapentin (GABAPENTIN ) 300 Mg Capsule, 300 MG PO DAILY for NEUROGENIC PAIN, CAP 08/13/21 Losartan Potassium (LOSARTAN POTASSIUM) 50 Mg Tablet, 50 MG PO DAILY for HYPERTENSION, TAB 08/13/21 Albuterol Sulfate (PROAIR HFA INHALER) 8.5 Gm Hfa.aer.ad, 1 PUFF INH PRN Q6HRS PRN for SHORTNESS OF BREATH, INHALER 0 Refills 02/14/16 Atorvastatin Calcium (ATORVASTATIN CALCIUM) 80 Mg Tablet, 80 MG PO HS for FOR CHOLESTEROL, #30 TAB 0 Refills 03/04/15 Pantoprazole Sodium (PANTOPRAZOLE SODIUM ) 40 Mg Tablet.dr, 1 TAB PO DAILY, #30 TAB 3 Refills 03/04/15 Amitriptyline Hcl (AMITRIPTYLINE HCL) 25 Mg Tablet, 25 MG PO HS 05/12/13 Discontinued Reported Medications Albuterol Sulfate (PROAIR HFA INHALER) 8.5 Gm Hfa.aer.ad, 1 PUFF INH PRN Q6HRS PRN for SHORTNESS OF BREATH, INHALER 0 Refills 02/14/16 Scheduled Amitriptyline Hcl (Amitriptyline Hcl), 25 MG PO HS, (Reported) Aspirin (Aspirin Ec), 325 MG PO DAILYWBKFT Atorvastatin Calcium (Atorvastatin Calcium), 80 MG PO HS, (Reported) Clopidogrel Bisulfate (Clopidogrel), 75 MG PO DAILY Gabapentin (Gabapentin ), 300 MG PO DAILY, (Reported) Losartan Potassium (Losartan Potassium), 50 MG PO DAILY, (Reported) Metoprolol Succinate (Metoprolol Succinate ( Xl )), 25 MG PO QHS, (Reported) Pantoprazole Sodium (Pantoprazole Sodium ), 1 TAB PO DAILY, (Reported) Scheduled PRN Albuterol Sulfate (Proair Hfa Inhaler), 1 PUFF INH PRN Q6HRS PRN for SHORTNESS OF BREATH, (Reported) Discontinued Medications Albuterol Sulfate (Proair Hfa Inhaler), 1 PUFF INH PRN Q6HRS PRN for SHORTNESS OF BREATH, (Reported) Total Time: Total Time: Total time spent was 32 minutes in preparing scripts, discharge planning with SWI and RN and preparing this discharge summary Patient seen and examined on day of discharge. No acute abnormal findings. Justicifation of Admission Dx: Justifications for Admission: Justification of Admission Dx: Yes [place]: Acute NSTEMI (CAD s/p PCI/KOLTON to LAD) EDISON RUSSELL MD Aug 21, 2021 13:44
[2021-08-27] MEDS ORDERED: NITR0.4T24 SL (11:50)
[2021-08-27] MEDS ORDERED: AMIO200T53 PO (11:50)
[2021-08-27] MEDS ORDERED: PRAS10TA9 PO (11:51)
== END 2021-08-15 15:00 | disposition home or self-care (01) | DRG 246 ==
LOC: ER 12:49 → 6 SOUTH 14:31 → OBSVTOIN 08-14 23:21
PROVIDERS: ADMIT Internal Medicine; ATTEND Internal Medicine
PROC: 027034Z Dilation of Coronary Artery, One Artery with Drug-eluting Intraluminal Device, Percutaneous Approach (ICD-10-PCS; principal; 2021-08-14)
PROC: 4A023N7 Measurement of Cardiac Sampling and Pressure, Left Heart, Percutaneous Approach (ICD-10-PCS; 2021-08-14)
PROC: B2111ZZ Fluoroscopy of Multiple Coronary Arteries using Low Osmolar Contrast (ICD-10-PCS; 2021-08-14)
PROC: B2151ZZ Fluoroscopy of Left Heart using Low Osmolar Contrast (ICD-10-PCS; 2021-08-14)
PROC: 4A033BC Measurement of Arterial Pressure, Coronary, Percutaneous Approach (ICD-10-PCS; 2021-08-14)
DX: I21.4 Non-ST elevation (NSTEMI) myocardial infarction (principal); I50.33 Acute on chronic diastolic (congestive) heart failure; E78.00 Pure hypercholesterolemia, unspecified; E78.5 Hyperlipidemia, unspecified; I10 Essential (primary) hypertension; I25.10 Atherosclerotic heart disease of native coronary artery without angina pectoris; M19.011 Primary osteoarthritis, right shoulder; M19.012 Primary osteoarthritis, left shoulder; G62.9 Polyneuropathy, unspecified; G89.29 Other chronic pain; K21.9 Gastro-esophageal reflux disease without esophagitis; Z88.5 Allergy status to narcotic agent; I25.2 Old myocardial infarction; Z82.49 Family history of ischemic heart disease and other diseases of the circulatory system; Z87.891 Personal history of nicotine dependence; Z79.02 Long term (current) use of antithrombotics/antiplatelets; Z79.82 Long term (current) use of aspirin; I11.0 Hypertensive heart disease with heart failure
CPT/HCPCS: 36415; 71045; 80053; 80307; 81001; 83690; 83735; 83880; 84484; 85025; 85379; 85610; 92928; 93005; 93306; 93458; 93571; 96360; 99152; 99153; C1769; C1894; G0378; G0379; J0153; J1644; J2250; J3010; J3490; J7120; Q9967; 99285-25; C8929

== ENCOUNTER 2021-08-25 13:16 | Inpatient (IN) | payer MEDICARE ==
[~2021-08-25] VITALS: Ht 162.6 cm; Wt 71.0 kg
[2021-08-25] VITALS (11 sets, daily range): BP systolic 88–119; BP diastolic 46–71
[~2021-08-25 13:16] MED LIST changes: +ASPI325T11 PO; +GABA300C18 PO; +LOSA-73 PO; +METO-239 PO
--- NOTE | 2021-08-25 13:40 | PHYS DOC ---
Past Medical History Past Medical History: CAD, GERD, High Cholesterol, Hypertension, [place] Additional Past Medical Histor: chronic back pain, neuropathy Past Surgical History: Other Additional Past Surgical Histo: cardiac stents x 4, rotator cuff, lower back Smoking Status: Former Smoker Alcohol Use: None Drug Use: None General Adult HPI: HPI: Patient is a 76 year old male presents to the ER with chest pain. Patient states that he started at 9 AM this morning radiating to his left jaw. Patient states it feels like someone sitting on his chest. Patient recently had a cardiac cath and a stent placed in his LAD. Patient also reports lightheadedness and short miss of breath. With exertion Review of Systems: Review of Systems: Constitutional: Denies fever or chills. [] Eyes: Denies change in visual acuity. [] HENT: Denies nasal congestion or sore throat. [] Respiratory: Denies cough or shortness of breath. [] Cardiovascular: Chest pain with radiation into the neck dyspnea on exertion GI: Denies abdominal pain, nausea, vomiting, bloody stools or diarrhea. [] : Denies dysuria. [] Musculoskeletal: Denies back pain or joint pain. [] Integument: Denies rash. [] Neurologic: Denies headache, focal weakness or sensory changes. [] Endocrine: Denies polyuria or polydipsia. [] Lymphatic: Denies swollen glands. [] Psychiatric: Denies depression or anxiety. [] Heart Score: C/O Chest Pain: Yes HEART Score for Chest Pain: HEART Score for Chest Pain Response (Comments) Value History Highly Suspicious [address] Depression 2 Risk Factors >3 Risk Factors or Hx CAD 2 Total 6 Risk Factors: Risk Factors: DM, Current or recent (<one month) smoker, HTN, HLP, family history of CAD, obesity. Risk Scores: Score 0 - 3: 2.5% MACE over next 6 weeks - Discharge Home Score 4 - 6: 20.3% MACE over next 6 weeks - Admit for Clinical Observation Score 7 - 10: 72.7% MACE over next 6 weeks - Early Invasive Strategies Current Medications: Current Medications Medications (Trade) Dose Ordered Sig/Magda Start Time Stop Time Status Last Admin Dose Admin Amiodarone HCl 150 mg/Dextrose 103 ml @ 400 mls/hr 1X ONCE 08/25/21 13:45 08/25/21 14:00 Amiodarone HCl 450 mg/Dextrose 259 ml @ 0 mls/hr CONT PRN 08/25/21 13:45 08/26/21 13:44 UNV Lorazepam (Ativan Inj) 2 mg STK-MED ONCE 08/25/21 13:32 08/25/21 13:33 DC Allergies: Allergies: Allergies Coded Allergies Type Severity Reaction Last Updated Verified morphine Adverse Reaction Severe vOMITING 08/13/21 Yes Physical Exam: PE: Constitutional: Well developed, well nourished, in moderate distress and ill- appearing HENT: Normocephalic, atraumatic, bilateral external ears normal, oropharynx moist, no oral exudates, nose normal. [] Eyes: PERRLA, EOMI, conjunctiva normal, no discharge. [] Neck: Normal range of motion, no tenderness, supple, no stridor. [] Cardiovascular tachycardic, no murmur [] Lungs & Thorax: Bilateral breath sounds clear to auscultation [] Abdomen: Bowel sounds normal, soft, no tenderness, no masses, no pulsatile masses. [] Skin: Warm, dry, no erythema, no rash. [] Back: No tenderness, no CVA tenderness. [] Extremities: No tenderness, no cyanosis, no clubbing, ROM intact, no edema. [] Neurologic: Alert and oriented X 3, normal motor function, normal sensory function, no focal deficits noted. [] Psychologic: Affect normal, judgement normal, mood normal. [] EKG: EKG: [] Patient is EKG shows a heart rate of 198 and V. tach. Repeat EKG shows us normal sinus rhythm with a heart rate of 80. QTc at 328 MT interval within normal limits Radiology/Procedures: Radiology/Procedures: [] Course & Med Decision Making: Course & Med Decision Making Pertinent Labs and Imaging studies reviewed. 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 Departure Departure Referrals: ALANNA BASURTO JR, MD (PCP) MALKA ARCHER DO Aug 25, 2021 13:40
[2021-08-25 13:43] LABS: BASO # 0.1 x10^3/uL (0.0-0.2); BASO % 1 % (0-3); EOS # 0.2 x10^3/uL (0.0-0.7); EOS % 1 % (0-3); HEMATOCRIT 44.5 % (39.0-53.0); HEMOGLOBIN 15.1 g/dL (13.0-17.5); LYMPH # 2.8 x10^3/uL (1.0-4.8); LYMPH % 27 % (24-48); MEAN CORPUSCULAR HEMOGLOBIN 32 pg (25-35); MEAN CORPUSCULAR HGB CONC 34 g/dL (31-37); MEAN CORPUSCULAR VOLUME 93 fL (79-100); MONO % 9 % (0-9); NEUT # 6.5 x10^3/uL (1.8-7.7); NEUT % 62 % (31-73); PLATELET COUNT 297 x10^3/uL (140-400); RED BLOOD COUNT 4.79 x10^6/uL (4.30-5.70); RED CELL DISTRIBUTION WIDTH 13.4 % (11.5-14.5); WHITE BLOOD COUNT 10.5 x10^3/uL (4.0-11.0)
[2021-08-25] MEDS ORDERED: AMIODARONE 150 MG in IV DEXTROSE 5% 100ML 100 ML IV ONE (13:45)
[2021-08-25 13:54] LABS: PROTHROMBIN TIME PATIENT 13.8 SEC (11.7-14.0)
[2021-08-25 14:02] LABS: CALCIUM 9.1 mg/dL (8.5-10.1); CREATININE 1.5 mg/dL (0.7-1.3); GFR 45.5; POTASSIUM 4.8 mmol/L (3.5-5.1)
[2021-08-25] MEDS: AMIODARONE 450 MG in IV DEXTROSE 5% 250 ML IV PRN ×2 (14:06→22:31)
[2021-08-25 14:07] LABS: ALBUMIN 4.1 g/dL (3.4-5.0); ALBUMIN/GLOBULIN RATIO 1.3 (1.0-1.7); TOTAL BILIRUBIN 0.4 mg/dL (0.2-1.0); TOTAL PROTEIN 7.2 g/dL (6.4-8.2)
--- NOTE | 2021-08-25 14:12 | EKG ---
[facility] [address] [place] [address] Test Date: 2021-08-25 Test Time: 13:17:56 Pat Name: MASON BELL Department: Room: Gender: Parent Aide: : 1945 Requested By: ANTON MARINELLI Order Number: [id number] Reading MD: Measurements Intervals [place] Rate: 198 P: [place]: QRS: 191 QRSD: 146 T: -9 QT: 270 QTc: 491 Interpretive Statements VENTRICULAR TACHYCARDIA ABNORMAL ECG RI6.02 No previous ECG available for comparison
--- NOTE | 2021-08-25 14:13 | EKG ---
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
--- NOTE | 2021-08-25 14:15 | RAD ---
Single AP view of the chest. Comparison: 08/13/2021. Indication: Chest pain Findings: Defibrillator pads are present on the chest The heart is at the upper limits of normal but stable. T here is no pneumothorax or effusion. No air space or interstitial disease. Impression: 1. No acute cardiopulmonary process. Electronically signed by: Octavio Sánchez MD (08/25/2021 2:13 PM) [id number]
[2021-08-25] MEDS ORDERED: IV NORMAL SALINE 1000ML BAG 1,000 ML IV ONE (14:30)
--- NOTE | 2021-08-25 15:30 | NUR ---
Patient admitted for VTach that happened while leaving the dental office driving home. States that they were going to call 911 but they were driving past the hospital on the way home anyway so they chose to drive to the hospital instead. Patient found to be in VTach upon arrival which required shock x1. Patient was then started on Amio gtt after amio bolus given. Admit with plan to go to cleaner laboratory equipment in the morning. Patient and both aware of and in agreeable with plan.
--- NOTE | 2021-08-25 16:06 | PDOC ---
RUDDY AGUILAR WINDOW GLAZIER 08/25/21 1606: CARDIO Progress Notes Date and Time Date of Service 08/25/21 Time of Evaluation 1345 Subjective Subjective: No Palpitations, No Dizziness, Other (chest pain resolved s/p cardioversion) Vitals Vitals Vital Signs Date Time Temp Pulse Resp B/P (MAP) Pulse Ox O2 Delivery O2 Flow Rate FiO2 08/25/21 14:57 62 19 95/59 (71) 96 Room Air 08/25/21 13:20 98.1 98.1 Weight Weight [ ] Laboratory Labs Laboratory Tests Test 08/25/21 13:25 White Blood Count 10.5 x10^3/uL (4.0-11.0) Red Blood Count 4.79 x10^6/uL (4.30-5.70) Hemoglobin 15.1 g/dL (13.0-17.5) Hematocrit 44.5 % (39.0-53.0) Mean Corpuscular Volume 93 fL (79-100) Mean Corpuscular Hemoglobin 32 pg (25-35) Mean Corpuscular Hemoglobin Concent 34 g/dL (31-37) Red Cell Distribution Width 13.4 % (11.5-14.5) Platelet Count 297 x10^3/uL (140-400) Neutrophils (%) (Auto) 62 % (31-73) Lymphocytes (%) (Auto) 27 % (24-48) Monocytes (%) (Auto) 9 % (0-9) Eosinophils (%) (Auto) 1 % (0-3) Basophils (%) (Auto) 1 % (0-3) Neutrophils # (Auto) 6.5 x10^3/uL (1.8-7.7) Lymphocytes # (Auto) 2.8 x10^3/uL (1.0-4.8) Monocytes # (Auto) 1.0 x10^3/uL (0.0-1.1) Eosinophils # (Auto) 0.2 x10^3/uL (0.0-0.7) Basophils # (Auto) 0.1 x10^3/uL (0.0-0.2) Prothrombin Time 13.8 SEC (11.7-14.0) Prothromb Time International Ratio 1.1 (0.8-1.1) Activated Partial Thromboplast Time 28 SEC (24-38) Sodium Level 137 mmol/L (136-145) Potassium Level 4.8 mmol/L (3.5-5.1) Chloride Level 101 mmol/L (98-107) Carbon Dioxide Level 27 mmol/L (21-32) Anion Gap 9 (6-14) Blood Urea Nitrogen 33 mg/dL (8-26) Creatinine 1.5 mg/dL (0.7-1.3) Estimated GFR (Cockcroft-Gault) 45.5 BUN/Creatinine Ratio 22 (6-20) Glucose Level 116 mg/dL (70-99) Calcium Level 9.1 mg/dL (8.5-10.1) Total Bilirubin 0.4 mg/dL (0.2-1.0) Aspartate Amino Transf (AST/SGOT) 67 U/L (15-37) Alanine Aminotransferase (ALT/SGPT) 80 U/L (16-63) Alkaline Phosphatase 64 U/L (46-116) Troponin I High Sensitivity 102 ng/L (4-75) Total Protein 7.2 g/dL (6.4-8.2) Albumin 4.1 g/dL (3.4-5.0) Albumin/Globulin Ratio 1.3 (1.0-1.7) Physical Exam HEENT: Neck Supple W Full Motion Chest: Symmetric LUNGS: Clear to Auscultation Heart: RRR Abdomen: Soft N/T Extremities: No Edema Neurology: alert, oriented, follow commands Assessment Assessment This is a 76 yo male who is known to our service from outpatient clinic and recent hospitalization. Has a history of CAD. Presented to hospital on 08/13/21 for chest pain. Underwent cardiac cath on 08/14/21 that reveled 70% stenosis involving the mid segment of the left anterior descending artery, physiologically significant based on FFR measurement of 0.79. Patient underwent successful PCI/drug-eluting stent placement to the left and to descending artery. The previously placed stent in the proximal to mid segment of the right coronary artery was widely patent. Echo showed LVEF 60%. Patient tolerated procedure well and was discharged home on DAPT with ASA/Plavix therapy. Reports experiencing pain in his upper back for the last week. This morning, developed pain in his central chest that radiated to his left jaw. Describes as pressure in his central chest. [place] lightheaded and short of breath. Symptoms became more intense so he came to the ED for further evaluation and treatment. Noted in VT upon arrival to ED. EKG was obtained and verified VT. Patient was cardioverted in ED. He converted to SR. EKG did not shows any acute ST elevations. Initial trop 102. CP resolved follow conversion to SR. Blood pressure is stable. Recommendations 1. Chest pain in the setting of sustained ventricular tachycardia. 2. Mild troponin elevation; initial 102. Most probably type II, demand ischemia secondary to above. Repeat EKG with significant acute changes 3. CAD s/p PCI/KOLTON stent to LAD 08/14/21. RCA stent patent. Echo 08/15/21 with LVEF 60% 4. Hypertension; low end 5. Hyperlipidemia: Continue statins and fibrates. Recent lipid profile showed LDL at 73. 6. SUNG 7. Mildly elevated LFTs- monitor Recommendations Start amiodarone gtt per protocol Trend troponin Resume secondary prevention including DAPT with ASA/Plavix High dose statin and BB therapy Hold losartan with SUNG, hypotension NPO p MN. Will plan for LHC in am. R/b/a discussed with patient and he is agreeable If no lesions needing intervention noted, will need AICD implantation given sustained VT. Supportive care Justicifation of Admission Dx: Justifications for Admission: Justification of Admission Dx: Yes DE: Acute NSTEMI FLAKITO FELIZ MD 08/26/21 0641: CARDIO Progress Notes Assessment Assessment Patient seen and examined. Agree with CONFIGURATION TECHNICIAN's assessment and plan Patient with h/o CAD s/p PCI/stent to RCA in past and more recent PCI/KOLTON to LAD presented with sustained Ventricular tachycardia He was cardioverted successfully with conversion to sinus rhythm He is presently CP free and EKG did not show any acute changes Plan for cardiac cath tomorrow to rule out ischemic etiology If there is no significant stenosis, we will plan for AICD implantation for secondary prevention of SCD Continue amiodarone infusion per protocol Total critical care time spent evaluating and managing patient 45 mins RUDDY AGUILAR APRN Aug 25, 2021 16:06 FLAKITO FELIZ MD Aug 26, 2021 06:41
[2021-08-25] MEDS ORDERED: FENO145T3 PO (16:09)
--- NOTE | 2021-08-25 17:02 | PDOC1 ---
History and Physical Date of Service: DOS: DATE: 08/25/21 TIME: 17:02 Chief Complaint: Chief Complain: chest pain History of Present Illness: HPI: Patient 76-year-old male presented to the emergency room this morning due to chest pain. Patient recently admitted for similar symptoms and eventually had cardiac cath with stent placed and symptoms had improved. See notes from that admission for further details cath was performed on August 14. Patient was discharged from that admission on dual antiplatelet therapy and reports compliance with these medications. Presented this morning with 1 day history of chest pain radiating to his jaw. Have been having some upper back pain for a few days as well. Chest pain was substernal was having some shortness of breath with that as well. Chest pain did throughout the morning causing her to present to the emergency room today. Was noted to be in V. tach upon arrival and underwent successful cardioversion with cardiac consultation as well. Started on amiodarone drip and admitted to the ICU. Patient was resting in bed when I evaluated him in the ICU. Denying any further chest pain. Cardiology planning for cath tomorrow which she is agreeable with. Past Medical/Surgical History: PMH/PSH: Past Medical History: CAD, GERD, High Cholesterol, Hypertension, IA Additional Past Medical Histor: chronic back pain, neuropathy Additional Past Surgical Histo: cardiac stents x 4, rotator cuff, lower back Smoking Status: Former Smoker Alcohol Use: None Drug Use: None Allergies: Allergies: Coded Allergies: morphine (Verified Adverse Reaction, Severe, vOMITING, 08/13/21) Family History: Family History: Chest pain Current Medications: Current Medications Current Medications Lorazepam (Ativan Inj) 2 mg STK-MED ONCE .ROUTE ; Start 08/25/21 at 13:32; Stop 08/25/21 at 13:33; Status DC Amiodarone HCl 150 mg/Dextrose 103 ml @ 400 mls/hr 1X ONCE IV Last administered on 08/25/21at 14:09; Start 08/25/21 at 13:45; Stop 08/25/21 at 14:00; Status DC Amiodarone HCl 450 mg/Dextrose 259 ml @ 0 mls/hr CONT PRN IV PER PROTOCOL Last administered on 08/25/21at 14:06; Start 08/25/21 at 13:45; Stop 08/26/21 at 13:44 Lorazepam (Ativan Inj) 2 mg 1X ONCE IVP Last administered on 08/25/21at 14:05; Start 08/25/21 at 14:15; Stop 08/25/21 at 14:16; Status DC Sodium Chloride 1,000 ml @ 999 mls/hr 1X ONCE IV Last administered on 08/25/21at 14:32; Start 08/25/21 at 14:30; Stop 08/25/21 at 15:30; Status DC Aspirin (Ecotrin) 325 mg DAILYWBKFT PO ; Start 08/26/21 at 08:00 Clopidogrel Bisulfate (Plavix) 75 mg DAILY PO ; Start 08/26/21 at 09:00 Metoprolol Succinate (Toprol Xl) 25 mg QHS PO ; Start 08/25/21 at 21:00 Pantoprazole Sodium (Protonix) 40 mg DAILYAC PO ; Start 08/26/21 at 07:30 Atorvastatin Calcium (Lipitor) 80 mg QHS PO ; Start 08/25/21 at 21:00 Active Scripts Active Aspirin Ec (Aspirin) 325 Mg Tablet. 325 Mg PO DAILYWBKFT 30 Days Clopidogrel (Clopidogrel Bisulfate) 75 Mg Tablet 75 Mg PO DAILY 30 Days Reported Fenofibrate (Fenofibrate Nanocrystallized) 145 Mg Tablet 1 Tab PO DAILY Metoprolol Succinate ( Xl ) (Metoprolol Succinate) 25 Mg Tab.er.24h 25 Mg PO QHS Gabapentin (Gabapentin) 300 Mg Capsule 300 Mg PO DAILY Losartan Potassium 50 Mg Tablet 50 Mg PO DAILY Proair Hfa Inhaler (Albuterol Sulfate) 8.5 Gm Hfa.aer.ad 1 Puff INH PRN Q6HRS PRN Atorvastatin Calcium 80 Mg Tablet 80 Mg PO HS Pantoprazole Sodium (Pantoprazole Sodium) 40 Mg Tablet.dr 1 Tab PO DAILY Amitriptyline Hcl 25 Mg Tablet 25 Mg PO HS ROS: Review of Systems Review of System Unless noted in HPI 14 point review of systems is negative Physical Exam: Vital Signs: Vital Signs Date Time Temp Pulse Resp B/P (MAP) Pulse Ox O2 Delivery O2 Flow Rate FiO2 08/25/21 16:15 54 14 89/62 (71) 96 Room Air 08/25/21 15:30 97.9 97.9 Physcial Exam: GEN: No apparent distress. Alert and oriented HEENT: Normal cephalic, atraumatic, external auditory canals are patent EYES: Extraocular muscles are intact, pupil are equally round and reactive to light and accommodation MUSCULOSKELETAL: Well developed , well nourished, good range of motion ENDOCRINE: No thyromegaly was palpated LYMPHATICS: No cervical chain or axillary nodes were noted HEMATOPOIETIC: No bruising NECK: Supple, no JVD, no thyromegaly was noted LUNGS: Clear to auscultation in all lung walter without rhonchi or wheezing HEART: RRR, S!, S2 present. Peripheral pulses intact, no obvious murmurs noted ABDOMEN: Soft, nontender. Positive bowel sounds, no organomegaly, normal bowel sounds EXTREMITIES: Without clubbing, cyanosis, or edema. Pedal pulses intact. Negative Homans sign NEUROLOGIC: Normal speech and tone. A&O x 3, moves all extremities, no obvious focal deficits PSYCHIATRIC: Normal affect, normal mood. Stable SKIN: No ulcerations or rashes, good skin turgor, no jaundice VASCULAR: Good capillary refill, neurovascular bundle appears to be intact Labs: Labs: Laboratory Tests Test 08/25/21 13:25 White Blood Count 10.5 x10^3/uL (4.0-11.0) Red Blood Count 4.79 x10^6/uL (4.30-5.70) Hemoglobin 15.1 g/dL (13.0-17.5) Hematocrit 44.5 % (39.0-53.0) Mean Corpuscular Volume 93 fL (79-100) Mean Corpuscular Hemoglobin 32 pg (25-35) Mean Corpuscular Hemoglobin Concent 34 g/dL (31-37) Red Cell Distribution Width 13.4 % (11.5-14.5) Platelet Count 297 x10^3/uL (140-400) Neutrophils (%) (Auto) 62 % (31-73) Lymphocytes (%) (Auto) 27 % (24-48) Monocytes (%) (Auto) 9 % (0-9) Eosinophils (%) (Auto) 1 % (0-3) Basophils (%) (Auto) 1 % (0-3) Neutrophils # (Auto) 6.5 x10^3/uL (1.8-7.7) Lymphocytes # (Auto) 2.8 x10^3/uL (1.0-4.8) Monocytes # (Auto) 1.0 x10^3/uL (0.0-1.1) Eosinophils # (Auto) 0.2 x10^3/uL (0.0-0.7) Basophils # (Auto) 0.1 x10^3/uL (0.0-0.2) Prothrombin Time 13.8 SEC (11.7-14.0) Prothromb Time International Ratio 1.1 (0.8-1.1) Activated Partial Thromboplast Time 28 SEC (24-38) Sodium Level 137 mmol/L (136-145) Potassium Level 4.8 mmol/L (3.5-5.1) Chloride Level 101 mmol/L (98-107) Carbon Dioxide Level 27 mmol/L (21-32) Anion Gap 9 (6-14) Blood Urea Nitrogen 33 mg/dL (8-26) Creatinine 1.5 mg/dL (0.7-1.3) Estimated GFR (Cockcroft-Gault) 45.5 BUN/Creatinine Ratio 22 (6-20) Glucose Level 116 mg/dL (70-99) Calcium Level 9.1 mg/dL (8.5-10.1) Total Bilirubin 0.4 mg/dL (0.2-1.0) Aspartate Amino Transf (AST/SGOT) 67 U/L (15-37) Alanine Aminotransferase (ALT/SGPT) 80 U/L (16-63) Alkaline Phosphatase 64 U/L (46-116) Troponin I High Sensitivity 102 ng/L (4-75) Total Protein 7.2 g/dL (6.4-8.2) Albumin 4.1 g/dL (3.4-5.0) Albumin/Globulin Ratio 1.3 (1.0-1.7) Laboratory Tests Test 08/25/21 13:25 White Blood Count 10.5 x10^3/uL (4.0-11.0) Red Blood Count 4.79 x10^6/uL (4.30-5.70) Hemoglobin 15.1 g/dL (13.0-17.5) Hematocrit 44.5 % (39.0-53.0) Mean Corpuscular Volume 93 fL (79-100) Mean Corpuscular Hemoglobin 32 pg (25-35) Mean Corpuscular Hemoglobin Concent 34 g/dL (31-37) Red Cell Distribution Width 13.4 % (11.5-14.5) Platelet Count 297 x10^3/uL (140-400) Neutrophils (%) (Auto) 62 % (31-73) Lymphocytes (%) (Auto) 27 % (24-48) Monocytes (%) (Auto) 9 % (0-9) Eosinophils (%) (Auto) 1 % (0-3) Basophils (%) (Auto) 1 % (0-3) Neutrophils # (Auto) 6.5 x10^3/uL (1.8-7.7) Lymphocytes # (Auto) 2.8 x10^3/uL (1.0-4.8) Monocytes # (Auto) 1.0 x10^3/uL (0.0-1.1) Eosinophils # (Auto) 0.2 x10^3/uL (0.0-0.7) Basophils # (Auto) 0.1 x10^3/uL (0.0-0.2) Prothrombin Time 13.8 SEC (11.7-14.0) Prothromb Time International Ratio 1.1 (0.8-1.1) Activated Partial Thromboplast Time 28 SEC (24-38) Sodium Level 137 mmol/L (136-145) Potassium Level 4.8 mmol/L (3.5-5.1) Chloride Level 101 mmol/L (98-107) Carbon Dioxide Level 27 mmol/L (21-32) Anion Gap 9 (6-14) Blood Urea Nitrogen 33 mg/dL (8-26) Creatinine 1.5 mg/dL (0.7-1.3) Estimated GFR (Cockcroft-Gault) 45.5 BUN/Creatinine Ratio 22 (6-20) Glucose Level 116 mg/dL (70-99) Calcium Level 9.1 mg/dL (8.5-10.1) Total Bilirubin 0.4 mg/dL (0.2-1.0) Aspartate Amino Transf (AST/SGOT) 67 U/L (15-37) Alanine Aminotransferase (ALT/SGPT) 80 U/L (16-63) Alkaline Phosphatase 64 U/L (46-116) Troponin I High Sensitivity 102 ng/L (4-75) Total Protein 7.2 g/dL (6.4-8.2) Albumin 4.1 g/dL (3.4-5.0) Albumin/Globulin Ratio 1.3 (1.0-1.7) Assessment/Plan Assessment/Plan Ventricular tachycardia status post cardioversion, history of IA CAD recent stent placement GERD hypertension hyperlipidemia -Presenting with 1 day history of chest pain with radiation to jaw. Found to be in V. tach on presentation underwent cardioversion with successful convert back to sinus rhythm -Recent admit for chest pain underwent cardiac cath at that time requiring 1 stent placement in the LAD -Cardiology consulted -Continue amio drip. Continue home dual antiplatelet therapy. N.p.o. at midnight for left heart cath in the morning -Trend troponins overnight -No indications for antimicrobials right now. No signs of infection -Cardiac diet n.p.o. midnight -Other home meds resumed as indicated 35 minutes critical care time Justifications for Admission Other Justification AIRAM JAY MD Aug 25, 2021 17:02
[2021-08-25] MEDS ORDERED: ONDANSETRON PF 4 MG/2 ML VIAL. IVP PRN (17:15)
[2021-08-25] MEDS ORDERED: ACETAMINOPHEN 325 MG TABLET. PO PRN (17:15)
[2021-08-25] MEDS ORDERED: CALCIUM CARBONATE 500 MG TAB.CHEW PO PRN (17:15)
[2021-08-25] MEDS ORDERED: ELECTROLYTE (NON-ICU) PROTOCOL. MC PRN (17:15)
[2021-08-25] MEDS ORDERED: MORPHINE SULFATE 2 MG/ML INJ. IV PRN ×2 (17:15)
--- NOTE | 2021-08-25 18:41 | NUR ---
On-call cardiology answering service notified of need for physician to call re patient to determine if heparin gtt needs started since Troponin increased. Awaiting phone call back.
[2021-08-25] MEDS: ATORVASTATIN CALCIUM 40 MG TABLET. PO SCH (20:32)
[2021-08-25] MEDS: SENNOSIDES/DOCUSATE 8.6/50MG TABLET. PO SCH (20:32)
[2021-08-25] MEDS: METOPROLOL SUCC 24HR ER 25 MG TAB.ER.24H. PO SCH (20:32)
[2021-08-25] MEDS: AMITRIPTYLINE HCL 25 MG TABLET. PO SCH (20:32)
[2021-08-26] VITALS (18 sets, daily range): BP systolic 86–172; BP diastolic 57–112
[2021-08-26] MEDS: HEPARIN for SUB-Q USE 5,000 UNIT/ML VIAL. SQ SCH ×4 (01:10→22:39)
[2021-08-26 05:10] LABS: BASO % 1 % (0-3); EOS # 0.1 x10^3/uL (0.0-0.7); EOS % 3 % (0-3); HEMATOCRIT 36.6 % (39.0-53.0); HEMOGLOBIN 12.5 g/dL (13.0-17.5); LYMPH # 1.8 x10^3/uL (1.0-4.8); LYMPH % 42 % (24-48); MEAN CORPUSCULAR HEMOGLOBIN 32 pg (25-35); MEAN CORPUSCULAR HGB CONC 34 g/dL (31-37); MEAN CORPUSCULAR VOLUME 93 fL (79-100); MONO # 0.4 x10^3/uL (0.0-1.1); MONO % 9 % (0-9); NEUT % 45 % (31-73); PLATELET COUNT 215 x10^3/uL (140-400); RED BLOOD COUNT 3.95 x10^6/uL (4.30-5.70); WHITE BLOOD COUNT 4.4 x10^3/uL (4.0-11.0)
[2021-08-26 05:17] LABS: ALBUMIN 3.3 g/dL (3.4-5.0); ALBUMIN/GLOBULIN RATIO 1.3 (1.0-1.7); CALCIUM 8.4 mg/dL (8.5-10.1); GFR 72.6; POTASSIUM 4.4 mmol/L (3.5-5.1); TOTAL BILIRUBIN 0.4 mg/dL (0.2-1.0); TOTAL PROTEIN 5.8 g/dL (6.4-8.2)
[2021-08-26] MEDS: FENOFIBRATE,MICRONIZED 134 MG CAPSULE PO SCH (07:16)
[2021-08-26] MEDS: PANTOPRAZOLE 40 MG TABLET.DR. PO SCH (07:16)
[2021-08-26] MEDS: ASPIRIN ENTERIC COATED 325 MG TABLET.DR. PO SCH (07:16)
[2021-08-26] MEDS: SENNOSIDES/DOCUSATE 8.6/50MG TABLET. PO SCH ×2 (07:17→20:40)
[2021-08-26] MEDS ORDERED: MIDAZOLAM HCL/PF 2 MG/2 ML VIAL. ONE (08:24)
[2021-08-26] MEDS ORDERED: fentaNYL PF VIAL 100 MCG/2 ML VIAL ONE (08:24)
[2021-08-26] MEDS ORDERED: VERAPAMIL 5 MG/2 ML VIAL. ONE (08:24)
[2021-08-26] MEDS ORDERED: NITROGLYCERIN 200 MCG/2 ML SYRINGE FOR CATH/VASC LAB. ONE ×2 (08:24→09:32)
[2021-08-26] MEDS ORDERED: HEPARIN for IV BOLUS 10,000 UNIT/10 ML VIAL. ONE (08:24)
[2021-08-26] MEDS ORDERED: CLOPIDOGREL BISULFATE 75 MG TABLET PO SCH (09:00)
[2021-08-26] MEDS ORDERED: BIVALIRUDIN 250 MG VIAL. IVP ONE ×2 (09:08→09:30)
[2021-08-26] MEDS ORDERED: MIDAZOLAM HCL/PF 2 MG/2 ML VIAL. IV ONE (09:30)
[2021-08-26] MEDS ORDERED: VERAPAMIL 5 MG/2 ML VIAL. IART ONE (09:30)
[2021-08-26] MEDS ORDERED: NITROGLYCERIN 200 MCG/2 ML SYRINGE FOR CATH/VASC LAB. IART ONE (09:30)
[2021-08-26] MEDS ORDERED: LIDOCAINE 1% PF 2 ML VIAL. INJ ONE (09:30)
[2021-08-26] MEDS ORDERED: IODIXANOL 320 MG/ML 100 ML VIAL. IART ONE (09:30)
[2021-08-26] MEDS ORDERED: fentaNYL PF VIAL 100 MCG/2 ML VIAL IV ONE (09:30)
[2021-08-26] MEDS ORDERED: HEPARIN for IV BOLUS 10,000 UNIT/10 ML VIAL. IART ONE (09:30)
[2021-08-26] MEDS ORDERED: LIDOCAINE 1% PF 2 ML VIAL. ONE (09:34)
[2021-08-26] MEDS ORDERED: IODIXANOL 320 MG/ML 100 ML VIAL. ONE ×2 (09:34→13:34)
[2021-08-26] MEDS ORDERED: NITROGLYCERIN 200 MCG/2 ML SYRINGE FOR CATH/VASC LAB. ICAR ONE (09:45)
[2021-08-26] MEDS: PRASUGREL 10 MG TABLET. PO SCH (10:00)
[2021-08-26] MEDS ORDERED: PRASUGREL 10 MG TABLET. ONE (10:04)
--- NOTE | 2021-08-26 10:09 | PDOC ---
MODERATE SEDATION ASSESSMENT RISKS/ALTERNATIVES Risks/Alternatives Risks and alternatives of this type of sedation and procedure discussed with: RISK/ALTERNATIVES: Patient H & P ON CHART H & P H & P on chart and reviewed for co-morbid conditions and appropriate labs. H&P ON CHART: Yes STATUS PREG STATUS ASSESSED: N/A MEDS/ALLERGIES REVIEWED Meds/Allergies Reviewed Medications and Allergies including time and route of recently administered narcotics and sedatives. MEDS/ALLERGIES REVIEWED: Yes ASA RATING ASA RATING: III AIRWAY ASSESSMENT Airway Assessment Airway patency, oral function limitations, presence of caps, crowns, dentures, partials, and ability to extend neck assessed. AIRWAY ASSESSMENT: Yes MALLAMPATI SCORE MALLAMPATI SCORE: II PRE-SEDATION ASSESSMENT PRE-SEDATION ASSESSMENT: Yes FLAKITO FELIZ MD Aug 26, 2021 10:09
[2021-08-26] MEDS ORDERED: IV 1/2 NORMAL SALINE 1,000 ML IV SCH (10:15)
[2021-08-26] MEDS ORDERED: NITROGLYCERIN SUBLINGUAL 0.4 MG BOTTLE OF 25. SL PRN (10:15)
--- NOTE | 2021-08-26 10:29 | CARD ---
MR#: [id number] Date of Study: 08/26/2021 Ordering Physician: RUDDY AGUILAR, Referring Physician: RUDDY AGUILAR, Tech: RT Phyllis(R) APPROVED REPORT Technologist: RT Phyllis(R) Nurse: Paula Samayoa RN Procedure(s) performed: 1. Left heart catheterization and selective coronary angiography via right t ransradial approach 2. Coronary intravascular ultrasound of left anterior descending artery 3. Successful PCI/drug-eluting stents placement to left anterior descending fluoro time: 17.1 min dose: 63meho0 contrast: 153 cc visi moderate sedation: 77min INDICATION The indication(s) include : Non-STEMI and sustained ventricular tachycardia needing cardioversion in a patient with history of coronary artery disease and recent PCI/stent placement to LAD. [facility] Clinical Frailty Scale [facility] Clinical Frailty Scale: Managing Well Heart Failure Heart Failure: No CASE TECHNIQUE IV conscious sedation was used throughout procedure with appropriate monitoring and was performed in the presence of a registered nurse who was an independent trained observer other than the physician p erforming the procedure. During this case, Fluoroscopy and low osmolar contrast were used for imaging . Specimen(s) Removed: No Estimated Blood loss: 15 cc's. PROCEDURE NARRATIVE After explaining the risks, benefits and alternative options, informed consent was obtained from marisa ent. Patient was brought to the cardiac Blindstitch Machine Operator and right wrist was prepped and draped in the usual fashion after confirming a positive modified Chepe's test. Arterial access was obtained in the [facility] radial artery and a 6 [place]ian sheath was inserted. 6 [place] Paxton catheter was used to perform zeeshan ective angiography of the left and right coronary arteries. LVEDP and transaortic gradients were deyanira sured. Since there was suspicion for proximal edge dissection of recently placed LAD stent, we decid ed to confirm this with coronary intravascular ultrasound. The left main coronary artery was engaged with XB 3.5 guide catheter and 0.014 inch [employer] Prowater was advanced into the distal segment of LAD . A [employer] eye coronary intravascular ultrasound catheter was then advanced into the mid to distal segment and IVUS was recorded during retraction. This confirmed the proximal edge dissection. Patient was also noted to have significant plaque burden in the segment distal to the stent. FINDINGS 1. Hemodynamics: Left ventricular end-diastolic pressure of 17 mmHg. No pullback gradient across th e aortic valve. 2. Coronary angiography: a. The left main coronary artery arose from the left sinus of Valsalva, gave rise to the left anteri or descending and left circumflex arteries and did not show any significant stenosis. b. The left anterior descending artery showed patent recently placed stent in the midsegment. 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 Also noted was 50% stenosis in the segment distal to the stent. C oronary intravascular ultrasound confirmed the edge dissection and actually showed significant plaque burden in the segment distal to the stent. c. The left circumflex artery did not show any significant stenosis. d. The right coronary artery was a large and dominant vessel arising from the right sinus of Valsalv a that showed patent previously placed stent in the midsegment. INTERVENTION The left main coronary artery was engaged with XB 3.5 guide catheter and [employer] guidewire adv anced into the distal segment of LAD for IVUS measurement as described above. The proximal edge diss ection was successfully treated with an overlapping 4.0 x 15 mm resolute [place] drug-eluting stent. Th e segment distal to the stent was dilated with a 2.5 x 15 mm Euphora balloon following which this was successfully treated with 2.5 x 22 mm resolute Solo drug-eluting stent that was deployed at high pre ssures to achieve 2.7 mm diameter. Follow-up angiography showed resolution of the lesions with RADHAMES- 3 distal flow. Patient tolerated the procedure well. Hemostasis was achieved using TR band. There were no immediate complications. RADHAMES Flow RADHAMES Flow (Pre-Intervention): RADHAMES-2 RADHAMES Flow (Post-Intervention): RADHAMES-3 Conclusion 1. 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 2. Successful PCI/drug-eluting stents placement to left anterior descending artery. Recommendations 1. Aspirin 325 mg daily for 1 month followed by 81 mg daily 2. Change Plavix to Effient 10 mg daily 3. Continue amiodarone for antiarrhythmic therapy for now 4. Consider DC home with [facility] 5. Cardiac rehabilitation referral Signed by : eRed Márquez, Electronically Approved : 08/26/2021 10:28:50
[2021-08-26] MEDS: AMIODARONE HCL 200 MG TABLET. PO SCH (10:35)
--- NOTE | 2021-08-26 14:55 | NUR ---
SS following for discharge planning. SS reviewed pt chart and discussed with pt RN. Pt is from home and is currently on room air. Cardiology following. Order received for [facility] V[facility]. Order and clinical phoned and faxed to [facility], ; fax [phone]. Per Scott at [facility] order was approved and will be delivered to pt. Pt transferring to room 675. [facility] notified. SS will continue to follow for discharge planning.
--- NOTE | 2021-08-26 15:06 | NUR ---
Notified Dr. Quinn of recent troponin level 11,560, no new orders. Addendum: 08/26/21 at 1507 by GIBSON HAND RN Incorrect patient, disregard note.
--- NOTE | 2021-08-26 16:17 | NUR ---
Transferred patient to room 675, report given to LIZANDRO Interiano.
--- NOTE | 2021-08-26 17:43 | PDOC ---
[employer] PROGRESS NOTE Date of Service DOS: DATE: 08/26/21 TIME: 17:41 Chief Complaint Chief Complaint Ventricular tachycardia status post cardioversion, STEMI - stent placed Hx CAD recent prior stent placement GERD hypertension hyperlipidemia History of Present Illness History of Present Illness cath todya went well meds will be changed, CV note reveiwed, will change to Prasugrel, Aspirin 325 mg daily for 1 month followed by 81 mg daily On amiodarone post V tach, plan lifevest Vitals/I&O Vitals/I&O: Vital Signs Date Time Temp Pulse Resp B/P (MAP) Pulse Ox O2 Delivery O2 Flow Rate FiO2 08/26/21 16:00 97.7 60 18 172/86 (114) 99 Room Air 97.7 08/26/21 10:06 2.0 I & O 08/25/21 08/25/21 08/26/21 15:00 23:00 07:00 Intake Total 1103 ml 420 ml 0 ml Output Total 1000 ml 1025 ml Balance 1103 ml -580 ml -1025 ml Physical Exam General: Alert, Oriented X3, Cooperative, No acute distress Heart: Normal S1, No murmurs Lungs: Clear Abdomen: No hepatosplenomegaly Extremities: No clubbing, Normal pulses Skin: No rashes, No breakdown, No significant lesion Labs Labs: Laboratory Tests Test 08/26/21 04:00 White Blood Count 4.4 x10^3/uL (4.0-11.0) Red Blood Count 3.95 x10^6/uL (4.30-5.70) Hemoglobin 12.5 g/dL (13.0-17.5) Hematocrit 36.6 % (39.0-53.0) Mean Corpuscular Volume 93 fL (79-100) Mean Corpuscular Hemoglobin 32 pg (25-35) Mean Corpuscular Hemoglobin Concent 34 g/dL (31-37) Red Cell Distribution Width 13.0 % (11.5-14.5) Platelet Count 215 x10^3/uL (140-400) Neutrophils (%) (Auto) 45 % (31-73) Lymphocytes (%) (Auto) 42 % (24-48) Monocytes (%) (Auto) 9 % (0-9) Eosinophils (%) (Auto) 3 % (0-3) Basophils (%) (Auto) 1 % (0-3) Neutrophils # (Auto) 2.0 x10^3/uL (1.8-7.7) Lymphocytes # (Auto) 1.8 x10^3/uL (1.0-4.8) Monocytes # (Auto) 0.4 x10^3/uL (0.0-1.1) Eosinophils # (Auto) 0.1 x10^3/uL (0.0-0.7) Basophils # (Auto) 0.0 x10^3/uL (0.0-0.2) Sodium Level 140 mmol/L (136-145) Potassium Level 4.4 mmol/L (3.5-5.1) Chloride Level 105 mmol/L (98-107) Carbon Dioxide Level 26 mmol/L (21-32) Anion Gap 9 (6-14) Blood Urea Nitrogen 26 mg/dL (8-26) Creatinine 1.0 mg/dL (0.7-1.3) Estimated GFR (Cockcroft-Gault) 72.6 BUN/Creatinine Ratio 26 (6-20) Glucose Level 99 mg/dL (70-99) Calcium Level 8.4 mg/dL (8.5-10.1) Total Bilirubin 0.4 mg/dL (0.2-1.0) Aspartate Amino Transf (AST/SGOT) 39 U/L (15-37) Alanine Aminotransferase (ALT/SGPT) 61 U/L (16-63) Alkaline Phosphatase 49 U/L (46-116) Troponin I High Sensitivity 954 ng/L (4-75) Total Protein 5.8 g/dL (6.4-8.2) Albumin 3.3 g/dL (3.4-5.0) Albumin/Globulin Ratio 1.3 (1.0-1.7) Assessment and Plan Assessmemt and Plan Problems Medical Problems: (1) Ventricular tachycardia Status: Acute Comment Review of Relevant I have reviewed the following items bill (where applicable) has been applied. Medications: Current Medications Medications (Trade) Dose Ordered Sig/Magda Route PRN Reason Start Time Stop Time Status Last Admin Dose Admin Senna/Docusate Sodium (Senna Plus) 1 tab BID PO 08/25/21 21:00 08/25/21 20:32 Heparin Sodium (Porcine) (Heparin Sodium) 5,000 unit Q8HRS SQ 08/25/21 22:00 08/26/21 01:10 Amitriptyline HCl (Elavil) 25 mg HS PO 08/25/21 21:00 08/25/21 20:32 Nitroglycerin (Nitroglycerin) 200 mcg 1X ONCE IART 08/26/21 09:30 08/26/21 09:31 DC 08/26/21 10:01 Verapamil HCl (Verapamil) 2.5 mg 1X ONCE IART 08/26/21 09:30 08/26/21 09:31 DC 08/26/21 10:02 Heparin Sodium (Porcine) (Heparin Sodium) 2,500 unit 1X ONCE IART 08/26/21 09:30 08/26/21 09:31 DC 08/26/21 10:03 Heparin Sodium/ Sodium Chloride (HEPARIN for ARTERIAL LINE FLUSH) 1,000 unit 1X ONCE IART 08/26/21 09:30 08/26/21 09:31 DC 08/26/21 10:00 Heparin Sodium/ Sodium Chloride (HEPARIN for ARTERIAL LINE FLUSH) 1,000 unit 1X ONCE IART 08/26/21 09:30 08/26/21 09:31 DC 08/26/21 10:00 Midazolam HCl (Versed) 2 mg 1X ONCE IV 08/26/21 09:30 08/26/21 09:31 DC 08/26/21 10:02 Fentanyl Citrate (Fentanyl 2ml Vial) 100 mcg 1X ONCE IV 08/26/21 09:30 08/26/21 09:31 DC 08/26/21 10:03 Iodixanol (Visipaque 320) 100 ml 1X ONCE IART 08/26/21 09:30 08/26/21 09:31 DC 08/26/21 10:01 Bivalirudin (Angiomax) 250 mg 1X ONCE IVP 08/26/21 09:30 08/26/21 09:31 DC 08/26/21 10:01 Lidocaine HCl (Xylocaine-Mpf 1% 2ml Vial) 2 ml 1X ONCE INJ 08/26/21 09:30 08/26/21 09:31 DC 08/26/21 10:00 Nitroglycerin (Nitroglycerin) 200 mcg 1X ONCE ICAR 08/26/21 09:45 08/26/21 09:46 DC 08/26/21 10:01 Prasugrel (Effient) 10 mg DAILYWBKFT PO 08/26/21 10:00 08/26/21 10:00 Sodium Chloride 1,000 ml @ 75 mls/hr [id number] IV 08/26/21 10:15 08/26/21 10:27 Amiodarone HCl (Cordarone) 200 mg DAILY PO 08/26/21 11:00 08/26/21 10:35 Justifications for Admission Other Justification DELVIS CANTU MD Aug 26, 2021 17:43
[2021-08-26] MEDS: AMITRIPTYLINE HCL 25 MG TABLET. PO SCH (20:38)
[2021-08-26] MEDS: ATORVASTATIN CALCIUM 40 MG TABLET. PO SCH (20:40)
[2021-08-26] MEDS: METOPROLOL SUCC 24HR ER 25 MG TAB.ER.24H. PO SCH (20:40)
[2021-08-27 03:50] VITALS: BP 141/77
[2021-08-27 04:57] LABS: BASO % 1 % (0-3); EOS # 0.2 x10^3/uL (0.0-0.7); EOS % 3 % (0-3); HEMATOCRIT 37.8 % (39.0-53.0); HEMOGLOBIN 12.9 g/dL (13.0-17.5); LYMPH # 1.5 x10^3/uL (1.0-4.8); LYMPH % 27 % (24-48); MEAN CORPUSCULAR HEMOGLOBIN 31 pg (25-35); MEAN CORPUSCULAR HGB CONC 34 g/dL (31-37); MEAN CORPUSCULAR VOLUME 92 fL (79-100); MONO # 0.6 x10^3/uL (0.0-1.1); MONO % 10 % (0-9); NEUT # 3.3 x10^3/uL (1.8-7.7); NEUT % 59 % (31-73); PLATELET COUNT 224 x10^3/uL (140-400); RED CELL DISTRIBUTION WIDTH 13.1 % (11.5-14.5); WHITE BLOOD COUNT 5.7 x10^3/uL (4.0-11.0)
[2021-08-27 05:14] LABS: ALBUMIN 3.5 g/dL (3.4-5.0); ALBUMIN/GLOBULIN RATIO 1.3 (1.0-1.7); CALCIUM 8.6 mg/dL (8.5-10.1); GFR 72.6; POTASSIUM 3.8 mmol/L (3.5-5.1); TOTAL BILIRUBIN 0.4 mg/dL (0.2-1.0); TOTAL PROTEIN 6.3 g/dL (6.4-8.2)
[2021-08-27] MEDS: HEPARIN for SUB-Q USE 5,000 UNIT/ML VIAL. SQ SCH (06:22)
[2021-08-27 07:00] VITALS: BP 157/89
[2021-08-27] MEDS: FENOFIBRATE,MICRONIZED 134 MG CAPSULE PO SCH (08:31)
[2021-08-27] MEDS: PRASUGREL 10 MG TABLET. PO SCH (08:31)
[2021-08-27] MEDS: SENNOSIDES/DOCUSATE 8.6/50MG TABLET. PO SCH (08:31)
[2021-08-27] MEDS: PANTOPRAZOLE 40 MG TABLET.DR. PO SCH (08:32)
[2021-08-27] MEDS: AMIODARONE HCL 200 MG TABLET. PO SCH (08:32)
[2021-08-27] MEDS: ASPIRIN ENTERIC COATED 325 MG TABLET.DR. PO SCH (08:32)
[2021-08-27 10:39] VITALS: BP 134/60
[2021-08-27] MEDS ORDERED: NITR0.4T24 SL (11:50)
[2021-08-27] MEDS ORDERED: AMIO200T53 PO (11:50)
[2021-08-27] MEDS ORDERED: PRAS10TA9 PO (11:51)
--- NOTE | 2021-08-27 14:38 | NUR ---
Discharge Note: [place] [facility] [facility] Discharge instructions and discharge home medications reviewed with Patient and a copy given. All questions have been answered and understanding verbalized. The following instructions and handouts were given: cardiology follow up, life vest teaching, and stent/cardiac cath after care Discontinued lines and drains: Both Iv's and african studies professor removed Patient discharged to home with self care
--- NOTE | 2021-08-27 16:42 | PDOC ---
PROGRESS NOTES Date of Service DATE: 08/27/21 TIME: 16:39 Subjective Subjective Patient seen and examined Objective Objective Vital Signs Date Time Temp Pulse Resp B/P (MAP) Pulse Ox O2 Delivery O2 Flow Rate FiO2 08/27/21 10:39 98.6 59 18 134/60 (84) 97 Room Air 98.6 08/27/21 08:00 2.0 Intake and Output 08/27/21 07:00 Intake Total 1410 ml Output Total 1295 ml Balance 115 ml Intake Oral 835 ml IV Total 575 ml Output Urine Total 1295 ml Physical Exam Abdomen: Normal bowel sounds Heart: Regular rate General: No acute distress Lungs: Clear to auscultation Assessment Assessment Problems Medical Problems: (1) Chest pain Status: Acute (2) Ventricular tachycardia Status: Acute 1. Episode of ventricular tachycardia. Cardioversion in the emergency room. Started on amiodarone. Rhythm has been stable. Placing an LifeVest at this time. 2. Mild troponin elevation; initial 102. Most probably type II, demand ischemia secondary to above. Repeat EKG with significant acute changes 3. CAD s/p PCI/KOLTON stent to LAD 08/14/21. RCA stent patent. Echo 08/15/21 with LVEF 60%. Repeat catheterization as above showed a possible edge dissection on the patient's LAD stent. Patient received both proximal and distal overlapping stents to this area with good results. Patient stable overnight with no chest pain. 4. Hypertension; continuing present medications. 5. Hyperlipidemia: Continue statins and fibrates. Recent lipid profile showed LDL at 73. 6. SUNG 7. Mildly elevated LFTs- monitor Comment Review of Relevant I have reviewed the following items bill (where applicable) has been applied. Labs Laboratory Tests Test 08/26/21 04:00 08/27/21 04:30 White Blood Count 4.4 x10^3/uL (4.0-11.0) 5.7 x10^3/uL (4.0-11.0) Red Blood Count 3.95 x10^6/uL (4.30-5.70) 4.10 x10^6/uL (4.30-5.70) Hemoglobin 12.5 g/dL (13.0-17.5) 12.9 g/dL (13.0-17.5) Hematocrit 36.6 % (39.0-53.0) 37.8 % (39.0-53.0) Mean Corpuscular Volume 93 fL (79-100) 92 fL (79-100) Mean Corpuscular Hemoglobin 32 pg (25-35) 31 pg (25-35) Mean Corpuscular Hemoglobin Concent 34 g/dL (31-37) 34 g/dL (31-37) Red Cell Distribution Width 13.0 % (11.5-14.5) 13.1 % (11.5-14.5) Platelet Count 215 x10^3/uL (140-400) 224 x10^3/uL (140-400) Neutrophils (%) (Auto) 45 % (31-73) 59 % (31-73) Lymphocytes (%) (Auto) 42 % (24-48) 27 % (24-48) Monocytes (%) (Auto) 9 % (0-9) 10 % (0-9) Eosinophils (%) (Auto) 3 % (0-3) 3 % (0-3) Basophils (%) (Auto) 1 % (0-3) 1 % (0-3) Neutrophils # (Auto) 2.0 x10^3/uL (1.8-7.7) 3.3 x10^3/uL (1.8-7.7) Lymphocytes # (Auto) 1.8 x10^3/uL (1.0-4.8) 1.5 x10^3/uL (1.0-4.8) Monocytes # (Auto) 0.4 x10^3/uL (0.0-1.1) 0.6 x10^3/uL (0.0-1.1) Eosinophils # (Auto) 0.1 x10^3/uL (0.0-0.7) 0.2 x10^3/uL (0.0-0.7) Basophils # (Auto) 0.0 x10^3/uL (0.0-0.2) 0.0 x10^3/uL (0.0-0.2) Sodium Level 140 mmol/L (136-145) 140 mmol/L (136-145) Potassium Level 4.4 mmol/L (3.5-5.1) 3.8 mmol/L (3.5-5.1) Chloride Level 105 mmol/L (98-107) 107 mmol/L (98-107) Carbon Dioxide Level 26 mmol/L (21-32) 24 mmol/L (21-32) Anion Gap 9 (6-14) 9 (6-14) Blood Urea Nitrogen 26 mg/dL (8-26) 19 mg/dL (8-26) Creatinine 1.0 mg/dL (0.7-1.3) 1.0 mg/dL (0.7-1.3) Estimated GFR (Cockcroft-Gault) 72.6 72.6 BUN/Creatinine Ratio 26 (6-20) 19 (6-20) Glucose Level 99 mg/dL (70-99) 103 mg/dL (70-99) Calcium Level 8.4 mg/dL (8.5-10.1) 8.6 mg/dL (8.5-10.1) Total Bilirubin 0.4 mg/dL (0.2-1.0) 0.4 mg/dL (0.2-1.0) Aspartate Amino Transf (AST/SGOT) 39 U/L (15-37) 35 U/L (15-37) Alanine Aminotransferase (ALT/SGPT) 61 U/L (16-63) 45 U/L (16-63) Alkaline Phosphatase 49 U/L (46-116) 53 U/L (46-116) Troponin I High Sensitivity 954 ng/L (4-75) Total Protein 5.8 g/dL (6.4-8.2) 6.3 g/dL (6.4-8.2) Albumin 3.3 g/dL (3.4-5.0) 3.5 g/dL (3.4-5.0) Albumin/Globulin Ratio 1.3 (1.0-1.7) 1.3 (1.0-1.7) Laboratory Tests Test 08/27/21 04:30 White Blood Count 5.7 x10^3/uL (4.0-11.0) Red Blood Count 4.10 x10^6/uL (4.30-5.70) Hemoglobin 12.9 g/dL (13.0-17.5) Hematocrit 37.8 % (39.0-53.0) Mean Corpuscular Volume 92 fL (79-100) Mean Corpuscular Hemoglobin 31 pg (25-35) Mean Corpuscular Hemoglobin Concent 34 g/dL (31-37) Red Cell Distribution Width 13.1 % (11.5-14.5) Platelet Count 224 x10^3/uL (140-400) Neutrophils (%) (Auto) 59 % (31-73) Lymphocytes (%) (Auto) 27 % (24-48) Monocytes (%) (Auto) 10 % (0-9) Eosinophils (%) (Auto) 3 % (0-3) Basophils (%) (Auto) 1 % (0-3) Neutrophils # (Auto) 3.3 x10^3/uL (1.8-7.7) Lymphocytes # (Auto) 1.5 x10^3/uL (1.0-4.8) Monocytes # (Auto) 0.6 x10^3/uL (0.0-1.1) Eosinophils # (Auto) 0.2 x10^3/uL (0.0-0.7) Basophils # (Auto) 0.0 x10^3/uL (0.0-0.2) Sodium Level 140 mmol/L (136-145) Potassium Level 3.8 mmol/L (3.5-5.1) Chloride Level 107 mmol/L (98-107) Carbon Dioxide Level 24 mmol/L (21-32) Anion Gap 9 (6-14) Blood Urea Nitrogen 19 mg/dL (8-26) Creatinine 1.0 mg/dL (0.7-1.3) Estimated GFR (Cockcroft-Gault) 72.6 BUN/Creatinine Ratio 19 (6-20) Glucose Level 103 mg/dL (70-99) Calcium Level 8.6 mg/dL (8.5-10.1) Total Bilirubin 0.4 mg/dL (0.2-1.0) Aspartate Amino Transf (AST/SGOT) 35 U/L (15-37) Alanine Aminotransferase (ALT/SGPT) 45 U/L (16-63) Alkaline Phosphatase 53 U/L (46-116) Total Protein 6.3 g/dL (6.4-8.2) Albumin 3.5 g/dL (3.4-5.0) Albumin/Globulin Ratio 1.3 (1.0-1.7) Medications Current Medications Lorazepam (Ativan Inj) 2 mg STK-MED ONCE .ROUTE ; Start 08/25/21 at 13:32; Stop 08/25/21 at 13:33; Status DC Amiodarone HCl 150 mg/Dextrose 103 ml @ 400 mls/hr 1X ONCE IV Last administered on 08/25/21at 14:09; Start 08/25/21 at 13:45; Stop 08/25/21 at 14:00; Status DC Amiodarone HCl 450 mg/Dextrose 259 ml @ 0 mls/hr CONT PRN IV PER PROTOCOL Last administered on 08/25/21at 22:31; Start 08/25/21 at 13:45; Stop 08/26/21 at 13:44; Status DC Lorazepam (Ativan Inj) 2 mg 1X ONCE IVP Last administered on 08/25/21at 14:05; Start 08/25/21 at 14:15; Stop 08/25/21 at 14:16; Status DC Sodium Chloride 1,000 ml @ 999 mls/hr 1X ONCE IV Last administered on 08/25/21at 14:32; Start 08/25/21 at 14:30; Stop 08/25/21 at 15:30; Status DC Aspirin (Ecotrin) 325 mg DAILYWBKFT PO Last administered on 08/27/21at 08:32; Start 08/26/21 at 08:00; Stop 08/27/21 at 14:40; Status DC Clopidogrel Bisulfate (Plavix) 75 mg DAILY PO ; Start 08/26/21 at 09:00; Stop 08/26/21 at 09:57; Status DC Metoprolol Succinate (Toprol Xl) 25 mg QHS PO Last administered on 08/26/21at 20:40; Start 08/25/21 at 21:00; Stop 08/27/21 at 14:40; Status DC Pantoprazole Sodium (Protonix) 40 mg DAILYAC PO Last administered on 08/27/21at 08:32; Start 08/26/21 at 07:30; Stop 08/27/21 at 14:40; Status DC Atorvastatin Calcium (Lipitor) 80 mg QHS PO Last administered on 08/26/21at 20:40; Start 08/25/21 at 21:00; Stop 08/27/21 at 14:40; Status DC Ondansetron HCl (Zofran) 4 mg PRN Q6HRS PRN IVP NAUSEA/VOMITING; Start 08/25/21 at 17:15; Stop 08/27/21 at 14:40; Status DC Calcium Carbonate/ Glycine (Tums) 500 mg PRN Q3HRS PRN PO UPSET STOMACH; Start 08/25/21 at 17:15; Stop 08/27/21 at 14:40; Status DC Info (Non-Icu Electrolyte Protocol) 1 ea PRN DAILY PRN MC SEE COMMENTS; Start 08/25/21 at 17:15; Stop 08/27/21 at 14:40; Status DC Morphine Sulfate (Morphine Sulfate) 1 mg PRN Q1HR PRN IV PAIN; Start 08/25/21 at 17:15; Stop 08/25/21 at 17:17; Status DC Morphine Sulfate (Morphine Sulfate) 2 mg PRN Q1HR PRN IV PAIN; Start 08/25/21 at 17:15; Stop 08/25/21 at 17:17; Status DC Acetaminophen (Tylenol) 650 mg PRN Q6HRS PRN PO Headaches, Temp > 101.5F; Start 08/25/21 at 17:15; Stop 08/27/21 at 14:40; Status DC Senna/Docusate Sodium (Senna Plus) 1 tab BID PO Last administered on 08/26/21at 20:40; Start 08/25/21 at 21:00; Stop 08/27/21 at 14:40; Status DC Heparin Sodium (Porcine) (Heparin Sodium) 5,000 unit Q8HRS SQ Last administered on 08/27/21at 06:22; Start 08/25/21 at 22:00; Stop 08/27/21 at 14:40; Status DC Amitriptyline HCl (Elavil) 25 mg HS PO Last administered on 08/26/21at 20:38; Start 08/25/21 at 21:00; Stop 08/27/21 at 14:40; Status DC Fenofibrate (Lofibra) 134 mg DAILY PO ; Start 08/26/21 at 09:00; Stop 08/27/21 at 14:40; Status DC Fentanyl Citrate (Fentanyl 2ml Vial) 100 mcg STK-MED ONCE .ROUTE ; Start 08/26/21 at 08:24; Stop 08/26/21 at 08:24; Status DC Midazolam HCl (Versed) 2 mg STK-MED ONCE .ROUTE ; Start 08/26/21 at 08:24; Stop 08/26/21 at 08:25; Status DC Heparin Sodium (Porcine) (Heparin Sodium) 10,000 unit STK-MED ONCE .ROUTE ; Start 08/26/21 at 08:24; Stop 08/26/21 at 08:25; Status DC Verapamil HCl (Verapamil) 5 mg STK-MED ONCE .ROUTE ; Start 08/26/21 at 08:24; Stop 08/26/21 at 08:25; Status DC Nitroglycerin (Nitroglycerin) 200 mcg STK-MED ONCE .ROUTE ; Start 08/26/21 at 08:24; Stop 08/26/21 at 08:25; Status DC Bivalirudin (Angiomax) 250 mg STK-MED ONCE IVP ; Start 08/26/21 at 09:08; Stop 08/26/21 at 09:08; Status DC Nitroglycerin (Nitroglycerin) 200 mcg 1X ONCE IART Last administered on 08/26/21at 10:01; Start 08/26/21 at 09:30; Stop 08/26/21 at 09:31; Status DC Verapamil HCl (Verapamil) 2.5 mg 1X ONCE IART Last administered on 08/26/21 10:02; Start 08/26/21 at 09:30; Stop 08/26/21 at 09:31; Status DC Heparin Sodium (Porcine) (Heparin Sodium) 2,500 unit 1X ONCE IART Last administered on 08/26/21 10:03; Start 08/26/21 at 09:30; Stop 08/26/21 at 09:31; Status DC Heparin Sodium/ Sodium Chloride (HEPARIN for ARTERIAL LINE FLUSH) 1,000 unit 1X ONCE IART Last administered on 08/26/21at 10:00; Start 08/26/21 at 09:30; Stop 08/26/21 at 09:31; Status DC Heparin Sodium/ Sodium Chloride (HEPARIN for ARTERIAL LINE FLUSH) 1,000 unit 1X ONCE IART Last administered on 08/26/21at 10:00; Start 08/26/21 at 09:30; Stop 08/26/21 at 09:31; Status DC Midazolam HCl (Versed) 2 mg 1X ONCE IV Last administered on 08/26/21at 10:02; Start 08/26/21 at 09:30; Stop 08/26/21 at 09:31; Status DC Fentanyl Citrate (Fentanyl 2ml Vial) 100 mcg 1X ONCE IV Last administered on 08/26/21 10:03; Start 08/26/21 at 09:30; Stop 08/26/21 at 09:31; Status DC Iodixanol (Visipaque 320) 100 ml 1X ONCE IART Last administered on 08/26/21 10:01; Start 08/26/21 at 09:30; Stop 08/26/21 at 09:31; Status DC Bivalirudin (Angiomax) 250 mg 1X ONCE IVP Last administered on 08/26/21 10:01; Start 08/26/21 at 09:30; Stop 08/26/21 at 09:31; Status DC Lidocaine HCl (Xylocaine-Mpf 1% 2ml Vial) 2 ml 1X ONCE INJ Last administered on 08/26/21 10:00; Start 08/26/21 at 09:30; Stop 08/26/21 at 09:31; Status DC Nitroglycerin (Nitroglycerin) 200 mcg STK-MED ONCE .ROUTE ; Start 08/26/21 at 09:32; Stop 08/26/21 at 09:32; Status DC Nitroglycerin (Nitroglycerin) 200 mcg 1X ONCE ICAR Last administered on 08/26/21 10:01; Start 08/26/21 at 09:45; Stop 08/26/21 at 09:46; Status DC Iodixanol (Visipaque 320) 100 ml STK-MED ONCE .ROUTE ; Start 08/26/21 at 09:34; Stop 08/26/21 at 09:34; Status DC Lidocaine HCl (Xylocaine-Mpf 1% 2ml Vial) 2 ml STK-MED ONCE .ROUTE ; Start 08/26/21 at 09:34; Stop 08/26/21 at 09:34; Status DC Heparin Sodium/ Sodium Chloride 500 ml @ As Directed STK-MED ONCE .ROUTE ; Start 08/26/21 at 09:34; Stop 08/26/21 at 09:34; Status DC Prasugrel (Effient) 10 mg DAILYWBKFT PO Last administered on 08/27/21at 08:31; Start 08/26/21 at 10:00; Stop 08/27/21 at 14:40; Status DC Prasugrel (Effient) 10 mg STK-MED ONCE .ROUTE ; Start 08/26/21 at 10:04; Stop 08/26/21 at 10:04; Status DC Sodium Chloride 1,000 ml @ 75 mls/hr [id number] IV Last administered on 08/26/21at 10:27; Start 08/26/21 at 10:15; Stop 08/26/21 at 17:56; Status DC Nitroglycerin (Nitrostat) 0.4 mg PRN Q5MIN PRN SL CHEST PAIN; Start 08/26/21 at 10:15; Stop 08/27/21 at 14:40; Status DC Amiodarone HCl (Cordarone) 200 mg DAILY PO Last administered on 08/27/21at 08:32; Start 08/26/21 at 11:00; Stop 08/27/21 at 14:40; Status DC Iodixanol (Visipaque 320) 100 ml STK-MED ONCE .ROUTE ; Start 08/26/21 at 13:34; Stop 08/26/21 at 13:35; Status DC Active Scripts Active Effient (Prasugrel Hcl) 10 Mg Tablet 1 Tab PO DAILY 90 Days Nitrostat (Nitroglycerin) 0.4 Mg Tab.subl 0.4 Mg SL PRN Q5MIN PRN 30 Days Amiodarone Hcl 200 Mg Tablet 200 Mg PO DAILY 60 Days Aspirin Ec (Aspirin) 325 Mg Tablet. 325 Mg PO DAILYWBKFT 30 Days Reported Fenofibrate (Fenofibrate Nanocrystallized) 145 Mg Tablet 1 Tab PO DAILY Metoprolol Succinate ( Xl ) (Metoprolol Succinate) 25 Mg Tab.er.24h 25 Mg PO QHS Gabapentin (Gabapentin) 300 Mg Capsule 300 Mg PO DAILY Losartan Potassium 50 Mg Tablet 50 Mg PO DAILY Proair Hfa Inhaler (Albuterol Sulfate) 8.5 Gm Hfa.aer.ad 1 Puff INH PRN Q6HRS PRN Atorvastatin Calcium 80 Mg Tablet 80 Mg PO HS Pantoprazole Sodium (Pantoprazole Sodium) 40 Mg Tablet.dr 1 Tab PO DAILY Amitriptyline Hcl 25 Mg Tablet 25 Mg PO HS Vitals/I & O Vital Sign - Last 24 Hours 08/26/21 08/26/21 08/26/21 08/26/21 18:47 20:00 20:40 22:55 Temp 98.0 98.0 98.0 98.0 Pulse 58 66 60 Resp 18 18 B/P (MAP) 137/63 (87) 137/63 135/67 (89) Pulse Ox 95 95 O2 Delivery Room Air Room Air Room Air 08/27/21 08/27/21 08/27/21 08/27/21 03:50 07:00 08:00 08:32 Temp 98.0 98.2 98.0 98.2 Pulse 56 56 60 Resp 18 18 B/P (MAP) 141/77 (98) 157/89 (111) 157/89 Pulse Ox 93 97 O2 Delivery Room Air Room Air Room Air O2 Flow Rate 2.0 08/27/21 10:39 Temp 98.6 98.6 Pulse 59 Resp 18 B/P (MAP) 134/60 (84) Pulse Ox 97 O2 Delivery Room Air Intake and Output 08/26/21 08/26/21 08/27/21 15:00 23:00 07:00 Intake Total 735 ml 575 ml 100 ml Output Total 1295 ml Balance -560 ml 575 ml 100 ml Justifications for Admission Other Justification KRIS GALVAN MD Aug 27, 2021 16:42
== END 2021-08-27 14:20 | disposition home or self-care (01) | DRG 247 ==
LOC: ER 13:16 → 1 WEST ICU 14:31 → 6 SOUTH 08-26 16:07
PROVIDERS: ADMIT Student in an Organized Health Care Education/Training Program; ATTEND Student in an Organized Health Care Education/Training Program
PROC: 5A2204Z Restoration of Cardiac Rhythm, Single (ICD-10-PCS; 2021-08-25)
PROC: 027035Z Dilation of Coronary Artery, One Artery with Two Drug-eluting Intraluminal Devices, Percutaneous Approach (ICD-10-PCS; principal; 2021-08-26)
PROC: B240ZZ3 Ultrasonography of Single Coronary Artery, Intravascular (ICD-10-PCS; 2021-08-26)
PROC: 4A023N7 Measurement of Cardiac Sampling and Pressure, Left Heart, Percutaneous Approach (ICD-10-PCS; 2021-08-26)
PROC: B211YZZ Fluoroscopy of Multiple Coronary Arteries using Other Contrast (ICD-10-PCS; 2021-08-26)
DX: I21.3 ST elevation (STEMI) myocardial infarction of unspecified site (principal); I47.2 Ventricular tachycardia; N17.9 Acute kidney failure, unspecified; Z79.01 Long term (current) use of anticoagulants; E78.00 Pure hypercholesterolemia, unspecified; E78.5 Hyperlipidemia, unspecified; I10 Essential (primary) hypertension; I25.10 Atherosclerotic heart disease of native coronary artery without angina pectoris; I25.2 Old myocardial infarction; K21.9 Gastro-esophageal reflux disease without esophagitis; Z79.82 Long term (current) use of aspirin; Z87.891 Personal history of nicotine dependence; Z95.5 Presence of coronary angioplasty implant and graft; G62.9 Polyneuropathy, unspecified; G89.29 Other chronic pain
CPT/HCPCS: 36415; 71045; 80053; 84484; 85025; 85610; 85730; 92928; 92978; 93005; 93458; 99152; 99153; C1725; C1753; C1769; C1874; C1894; J0282; J0583; J1644; J2060; J2250; J3010; J3490; J7030; J7060; Q9967; G0378